=== PATIENT | female | born 1990 | race Caucasian/White ===

== ENCOUNTER → 2017-12-15 12:01 | Outpatient (CLI) | payer OTHER, SELFPAY | PROVIDERS: PCP Family Medicine | DX: Z23 Encounter for immunization (principal) | CPT/HCPCS: 90471; 90686 ==

== ENCOUNTER → 2018-04-10 09:10 | Outpatient (CLI) | payer OTHER, SELFPAY | PROVIDERS: PCP Family Medicine; Visit Provider Physician Assistant | DX: J02.9 Acute pharyngitis, unspecified (principal) | CPT/HCPCS: 87070 ==

== ENCOUNTER 2018-08-09 09:45 | Outpatient (RCR) | payer OTHER, SELFPAY ==
--- NOTE | 2017-11-11 15:52 | PT.OIE ---
Current Diagnoses Cervicalgia (11/11/17) Provider Visit Care Team Role Provider Type Phylicia Garcia DO Attending Provider Physician Primary Care Provider Specialty: Family Practice Address: [address] [place] [address], [id number] Email: [email or web address] Physical Therapy Initial Evaluation PT-OP-A Visit Information Start: 11/11/17 07:25 Freq: Status: Active Protocol: Document 11/11/17 08:19 [facility] (Rec: 11/11/17 15:52 [facility] [id number]) Out-Patient Physical Therapy Visit Information Visit Information Visit Type Initial Evaluation Visit Note 60 visits per year Visit Start Time 08:15 Visit Stop Time 09:00 Total Visit Minutes 45 Visit Number 1 Number of VAULT KEEPER Visits 0 PT-OP-B Current Condition Start: 11/11/17 07:25 Freq: Status: Active Protocol: Document 11/11/17 08:19 [facility] (Rec: 11/11/17 15:52 [facility] [id number]) Current Condition History of Current Condition Onset Date 11/06/17 Current Complaints neck & upper thoracic pain History of Current Condition Pt presents with neck pain after she woke up on Tuesday with pain from cranium to shoulder blade region, especially when she sat up or looked up or down. Pt had pain a few months ago at yoga when she was in forward fold for extended time, but that went away quickly, unlike this which is lingering. Pt reports when she woke up Tuesday her arms wither numb and she was face down. Reports no numbness since. Reports her elbow pops of of socket on her R side for the past few years. Reports she had pain after the long car ride when they moved here also, but it went away soon after. Prior Treatments and Tests none Treatment Goals Patient/Caregiver Goals Dec pain & improve posture PT-OP-C Subjective Start: 11/11/17 07:25 Freq: Status: Active Protocol: Document 11/11/17 08:19 [facility] (Rec: 11/11/17 15:52 [facility] [id number]) Patient Questionnaires Neck Disability Index NDI Score 8 Neck Disability Index Impairment 1 to 19% Impaired (Score 1-9) OP-PT Pain Assessment Location Bilateral Posterior Neck Pain Location Details cranium to shoulder blades B Intensity 3 Scale Used Numeric (1 - 10) Frequency Intermittent Other Pain Aggravating Factors sitting up from bed, looking up/down Other Pain Alleviating Factors get out of painful position PT-OP-F Manual Assessment Start: 11/11/17 07:25 Freq: Status: Active Protocol: Document 11/11/17 08:19 [facility] (Rec: 11/11/17 09:05 [facility] [id number]) Manual Assessments Soft Tissue Assessment Soft Tissue Mobility Assessment Tightness & tenderness: UT, scalenes, c spine paraspinals, SCM; fascial tension posteriorly & ant Joint Mobility Assessment Joint Mobility Assessment elevated first rib & stiffness in thoracic spine PT-OP-J Posture/Palpation/Skin Start: 11/11/17 07:25 Freq: Status: Active Protocol: Document 11/11/17 08:19 [facility] (Rec: 11/11/17 09:05 [facility] [id number]) Posture Evaluation [facility] Postural Classification System [facility] Postural Classifications Anterior/Posterior Vertebral Compression Test 1 Elbow Flexion Test 1 Comments Posture Comments significant fwd head & neck PT-OP-K Range of Motion Start: 11/11/17 07:25 Freq: Status: Active Protocol: Document 11/11/17 08:19 [facility] (Rec: 11/11/17 09:05 [facility] [id number]) Cervical Spine Range of Motion Cervical Spine Active Degrees Flexion 32 Extension 62 Rotation Left 58 Rotation Right 57 Lateral Flexion Left 45 Lateral Flexion Right 45 Comments stretch B rotation; flex & ext painful; tight with SB PT-OP-L Special Tests Start: 11/11/17 07:25 Freq: Status: Active Protocol: Document 11/11/17 08:19 [facility] (Rec: 11/11/17 09:05 [facility] [id number]) Special Tests Cervical Spine Special Tests Spurling's Test Test Results neg Vertebral Artery Test Results neg B Alar Ligament Test Results neg Neural Special Tests- Upper Body Upper Limb Tension Test Test Results passive abd test Comments ~50 deg B Radial Nerve Tension Test Results L>R Ulnar Nerve Tension Test Results positive L; neg R Median Nerve Tension Test Results positive B Comments ~45 deg R & 60 deg L PT-OP-M Strength Start: 11/11/17 07:25 Freq: Status: Active Protocol: Document 11/11/17 08:19 [facility] (Rec: 11/11/17 09:05 [facility] [id number]) Shoulder Strength Shoulder Manual Muscle Testing Right Flexion 5 Normal Extension 5 Normal Abduction (C5) 5 Normal External Rotation 4+ Good+ Internal Rotation 5 Normal Horizontal Abduction 5 Normal Horizontal Adduction 5 Normal Left Flexion 5 Normal Extension 5 Normal Abduction (C5) 5 Normal External Rotation 4+ Good+ Internal Rotation 5 Normal Horizontal Abduction 5 Normal Horizontal Adduction 4+ Good+ Elbow/Forearm Strength Elbow and Forearm Manual Muscle Testing Right Flexion (C6) 4 Good Extension (C7) 5 Normal Pronation 5 Normal Supination 5 Normal Left Flexion (C6) 5 Normal Extension (C7) 5 Normal Pronation 5 Normal Supination 5 Normal PT-OP-Q Treatments Start: 11/11/17 07:25 Freq: Status: Active Protocol: Document 11/11/17 08:19 [facility] (Rec: 11/11/17 09:05 [facility] [id number]) Therapeutic Exercises Sidelying Exercises 1 Sidelying Exercise Name roll & reach Side bilateral Sitting Exercises 2 Sitting Exercise Name chin tucks 1 Sitting Exercise Name UT, scalenes, LS, pec stretch stretches Side bilateral Standing Exercises 2 Standing Exercise Name wall posture w/90/90 ER Side bilateral 1 Standing Exercise Name corner pec stretch Side bilateral PT-OP-T Assessment and Plan Start: 11/11/17 07:25 Freq: Status: Active Protocol: Document 11/11/17 08:19 [facility] (Rec: 11/11/17 15:31 [facility] [id number]) Physical Therapy Assessment Rehab Potential Rehabilitation Potential Good Evaluation Complexity Number of Personal Factors/Comorbidities 1-2 Number of Body Systems Impaired 4 or More Clinical Presentation at Evaluation Evolving Impairments Impairments Functional Activities Pain Posture ROM Soft Tissue Mobility Strength Goals Three Impairment posture Short Term Goal (STG) Indep HEP STG Duration 12/11/17 Process Consultant Goal (LTG) Pt will present with good posture without cueing. LTG Duration 01/11/18 Two Impairment NDI Process Consultant Goal (LTG) 0 to show functional improvement to allow normal activities without pain LTG Duration 01/11/18 One Impairment pain Correction Goal (LTG) 0/10 with all activities LTG Duration 01/11/18 Assessment Summary Assessment Pt presents with post neck & upper thoracic pain likely d/t poor postural control. Pt would benefit from skilled PT to work on postural stability & strength in order to decrease pain. Physical Therapy Plan Frequency and Duration Frequency of Treatment 2x/Week Duration of Treatment 2 months Plan of Care Start Date 11/11/17 Plan of Care End Date 01/11/18 Therapeutic Interventions Therapeutic Interventions Home Exercise Program Joint Mobilizations Manual Therapy Self-Care/Home Management Soft Tissue Mobilization Taping Therapeutic Activities Therapeutic Exercises Modalities Cold Pack/Ice Massage Electric Stimulation Hot Packs Traction- Mechanical Ultrasound Next Visit Focus/Plan Next Note Type Treatment Note Next Visit Plan child's pose, cat camel, rows, HAbd, MFR to post cervical
--- NOTE | 2017-11-11 15:52 | PT.OPPOC ---
Current Diagnoses Cervicalgia (11/11/17) Provider Visit Care Team Role Provider Type Phylicia Garcia DO Attending Provider Physician Primary Care Provider Specialty: Family Practice Address: [address] [place] [address], [id number] Email: [email or web address] Plan Of Care PT-OP-T Assessment and Plan Start: 11/11/17 07:25 Freq: Status: Active Protocol: Document 11/11/17 08:19 [facility] (Rec: 11/11/17 15:31 [facility] [id number]) Physical Therapy Assessment Rehab Potential Rehabilitation Potential Good Evaluation Complexity Number of Personal Factors/Comorbidities 1-2 Number of Body Systems Impaired 4 or More Clinical Presentation at Evaluation Evolving Impairments Impairments Functional Activities Pain Posture ROM Soft Tissue Mobility Strength Goals Three Impairment posture Short Term Goal (STG) Indep HEP STG Duration 12/11/17 Track Repairer Helper Goal (LTG) Pt will present with good posture without cueing. LTG Duration 01/11/18 Two Impairment NDI Usp Goal (LTG) 0 to show functional improvement to allow normal activities without pain LTG Duration 01/11/18 One Impairment pain Usp Goal (LTG) 0/10 with all activities LTG Duration 01/11/18 Assessment Summary Assessment Pt presents with post neck & upper thoracic pain likely d/t poor postural control. Pt would benefit from skilled PT to work on postural stability & strength in order to decrease pain. Physical Therapy Plan Frequency and Duration Frequency of Treatment 2x/Week Duration of Treatment 2 months Plan of Care Start Date 11/11/17 Plan of Care End Date 01/11/18 Therapeutic Interventions Therapeutic Interventions Home Exercise Program Joint Mobilizations Manual Therapy Self-Care/Home Management Soft Tissue Mobilization Taping Therapeutic Activities Therapeutic Exercises Modalities Cold Pack/Ice Massage Electric Stimulation Hot Packs Traction- Mechanical Ultrasound Next Visit Focus/Plan Next Note Type Treatment Note Next Visit Plan child's pose, cat camel, rows, HAbd, MFR to post cervical Plan of Care Dates Plan of Care Start Date 11/11/17 Plan of Care End Date 01/11/18 Please Sign and Return: I have reviewed this Plan of Care and certify that the skilled therapy services above are required to meet the patient?s needs. Physician Signature Date Printed Name and Credentials Clinical Instructor Signature Printed Name and Credentials
--- NOTE | 2017-11-24 17:01 | PT.OTN ---
Current Diagnoses Cervicalgia (11/24/17) Physical Therapy Treatment Note PT-OP-A Visit Information Start: 11/11/17 07:25 Freq: Status: Active Protocol: Document 11/24/17 08:15 [facility] (Rec: 11/24/17 09:47 [facility] [id number]) Out-Patient Physical Therapy Visit Information Visit Information Visit Type Treatment Note Visit Note [facility] Visit Start Time 08:15 Visit Stop Time 09:15 Total Visit Minutes 45 Visit Number 2 Number of DITCH CLEANER Visits 0 PT-OP-B Current Condition Start: 11/11/17 07:25 Freq: Status: Active Protocol: Document 11/11/17 08:19 [facility] (Rec: 11/11/17 15:52 [facility] [id number]) Current Condition History of Current Condition Onset Date 11/06/17 Current Complaints neck & upper thoracic pain History of Current Condition Pt presents with neck pain after she woke up on Tuesday with pain from cranium to shoulder blade region, especially when she sat up or looked up or down. Pt had pain a few months ago at yoga when she was in forward fold for extended time, but that went away quickly, unlike this which is lingering. Pt reports when she woke up Tuesday her arms wither numb and she was face down. Reports no numbness since. Reports her elbow pops of of socket on her R side for the past few years. Reports she had pain after the long car ride when they moved here also, but it went away soon after. Prior Treatments and Tests none Treatment Goals Patient/Caregiver Goals Dec pain & improve posture PT-OP-C Subjective Start: 11/11/17 07:25 Freq: Status: Active Protocol: Document 11/24/17 16:52 [facility] (Rec: 11/24/17 17:01 [facility] [id number]) OP-PT Subjective Patient Comments Patient Comments Reports she is trying to pay more attention to her posture and do the stretching exercises PT-OP-F Manual Assessment Start: 11/11/17 07:25 Freq: Status: Active Protocol: Document 11/11/17 08:19 [facility] (Rec: 11/11/17 09:05 [facility] [id number]) Manual Assessments Soft Tissue Assessment Soft Tissue Mobility Assessment Tightness & tenderness: UT, scalenes, c spine paraspinals, SCM; fascial tension posteriorly & ant Joint Mobility Assessment Joint Mobility Assessment elevated first rib & stiffness in thoracic spine PT-OP-J Posture/Palpation/Skin Start: 11/11/17 07:25 Freq: Status: Active Protocol: Document 11/11/17 08:19 [facility] (Rec: 11/11/17 09:05 [facility] [id number]) Posture Evaluation [facility] Postural Classification System [facility] Postural Classifications Anterior/Posterior Vertebral Compression Test 1 Elbow Flexion Test 1 Comments Posture Comments significant fwd head & neck PT-OP-K Range of Motion Start: 11/11/17 07:25 Freq: Status: Active Protocol: Document 11/11/17 08:19 [facility] (Rec: 11/11/17 09:05 [facility] [id number]) Cervical Spine Range of Motion Cervical Spine Active Degrees Flexion 32 Extension 62 Rotation Left 58 Rotation Right 57 Lateral Flexion Left 45 Lateral Flexion Right 45 Comments stretch B rotation; flex & ext painful; tight with SB PT-OP-L Special Tests Start: 11/11/17 07:25 Freq: Status: Active Protocol: Document 11/11/17 08:19 [facility] (Rec: 11/11/17 09:05 [facility] [id number]) Special Tests Cervical Spine Special Tests Spurling's Test Test Results neg Vertebral Artery Test Results neg B Alar Ligament Test Results neg Neural Special Tests- Upper Body Upper Limb Tension Test Test Results passive abd test Comments ~50 deg B Radial Nerve Tension Test Results L>R Ulnar Nerve Tension Test Results positive L; neg R Median Nerve Tension Test Results positive B Comments ~45 deg R & 60 deg L PT-OP-M Strength Start: 11/11/17 07:25 Freq: Status: Active Protocol: Document 11/11/17 08:19 [facility] (Rec: 11/11/17 09:05 [facility] [id number]) Shoulder Strength Shoulder Manual Muscle Testing Right Flexion 5 Normal Extension 5 Normal Abduction (C5) 5 Normal External Rotation 4+ Good+ Internal Rotation 5 Normal Horizontal Abduction 5 Normal Horizontal Adduction 5 Normal Left Flexion 5 Normal Extension 5 Normal Abduction (C5) 5 Normal External Rotation 4+ Good+ Internal Rotation 5 Normal Horizontal Abduction 5 Normal Horizontal Adduction 4+ Good+ Elbow/Forearm Strength Elbow and Forearm Manual Muscle Testing Right Flexion (C6) 4 Good Extension (C7) 5 Normal Pronation 5 Normal Supination 5 Normal Left Flexion (C6) 5 Normal Extension (C7) 5 Normal Pronation 5 Normal Supination 5 Normal PT-OP-Q Treatments Start: 11/11/17 07:25 Freq: Status: Active Protocol: Document 11/24/17 16:52 [facility] (Rec: 11/24/17 17:01 [facility] [id number]) Therapeutic Exercises Supine Exercises 1 Supine Exercise Name pec nga and minor stretches, lat stretch Equipment Used 1/2 roll, then full foam roll Reps/Minutes 5 active through ROM, 1 passive for 30 sec Sidelying Exercises 1 Sidelying Exercise Name roll & reach Side bilateral Reps/Minutes 5x ea Comments verbal and manual cues and facilitation of motion Sitting Exercises 2 Sitting Exercise Name chin tucks Standing Exercises 3 Standing Exercise Name rows, shld ext Side bilateral Resistance L1 TB Reps/Minutes 10x Comments emphasis on postural alignment 2 Standing Exercise Name wall posture w/90/90 ER Side bilateral 1 Standing Exercise Name corner and doorway stretch Side bilateral Manual Therapy Treatment Soft Tissue Mobilization 1 Body Location cervical spine, UT, levator Mobilization Type Myofascial Release Strumming Self-Care/Home Management Treatment Education Patient Education Home Exercise Program Posture Other Education written handout PT-OP-R Modalities Start: 11/11/17 07:25 Freq: Status: Active Protocol: Document 11/24/17 16:52 [facility] (Rec: 11/24/17 17:01 [facility] [id number]) Hot Pack/Cold Pack Treatment Hot Pack Location c/s Patient Position Hooklying Treatment Duration (minutes) 15 Patient Tolerance Good PT-OP-T Assessment and Plan Start: 11/11/17 07:25 Freq: Status: Active Protocol: Document 11/24/17 16:52 [facility] (Rec: 11/24/17 17:01 [facility] [id number]) Physical Therapy Assessment Goals Three Impairment posture Short Term Goal (STG) Indep HEP STG Duration 12/11/17 Senior Care Goal (LTG) Pt will present with good posture without cueing. LTG Duration 01/11/18 Two Impairment NDI Learning Support Specialist Goal (LTG) 0 to show functional improvement to allow normal activities without pain LTG Duration 01/11/18 One Impairment pain Senior Care Goal (LTG) 0/10 with all activities LTG Duration 01/11/18 Assessment Summary Assessment Patient demonstrating improving posural awareness, needs verbal and manual cues for cervical correction. Benefits from use of wall posture ex for tactile and kinesthetic feedback, and use of foam roller for flexibility and alignment. Physical Therapy Plan Frequency and Duration Frequency of Treatment 2x/Week Duration of Treatment 2 months Plan of Care Start Date 11/11/17 Plan of Care End Date 01/11/18 Therapeutic Interventions Therapeutic Interventions Home Exercise Program Joint Mobilizations Manual Therapy Self-Care/Home Management Soft Tissue Mobilization Taping Therapeutic Activities Therapeutic Exercises Modalities Cold Pack/Ice Massage Electric Stimulation Hot Packs Traction- Mechanical Ultrasound Next Visit Focus/Plan Next Note Type Treatment Note Next Visit Plan child's pose, cat/camel, progression of postural exercises
--- NOTE | 2017-12-14 11:43 | PT.OTN ---
Current Diagnoses Cervicalgia (12/14/17) Physical Therapy Treatment Note PT-OP-A Visit Information Start: 11/11/17 07:25 Freq: Status: Active Protocol: Document 12/14/17 11:40 [facility] (Rec: 12/14/17 11:43 [facility] [id number]) Out-Patient Physical Therapy Visit Information Visit Information Visit Type Treatment Note Visit Start Time 10:38 Visit Stop Time 11:20 Total Visit Minutes 42 PT-OP-B Current Condition Start: 11/11/17 07:25 Freq: Status: Active Protocol: Document 11/11/17 08:19 [facility] (Rec: 11/11/17 15:52 [facility] [id number]) Current Condition History of Current Condition Onset Date 11/06/17 Current Complaints neck & upper thoracic pain History of Current Condition Pt presents with neck pain after she woke up on Tuesday with pain from cranium to shoulder blade region, especially when she sat up or looked up or down. Pt had pain a few months ago at yoga when she was in forward fold for extended time, but that went away quickly, unlike this which is lingering. Pt reports when she woke up Tuesday her arms wither numb and she was face down. Reports no numbness since. Reports her elbow pops of of socket on her R side for the past few years. Reports she had pain after the long car ride when they moved here also, but it went away soon after. Prior Treatments and Tests none Treatment Goals Patient/Caregiver Goals Dec pain & improve posture PT-OP-C Subjective Start: 11/11/17 07:25 Freq: Status: Active Protocol: Document 12/14/17 11:40 [facility] (Rec: 12/14/17 11:43 [facility] [id number]) OP-PT Subjective Patient Comments Patient Comments pt reports compliance with neck stretches PT-OP-F Manual Assessment Start: 11/11/17 07:25 Freq: Status: Active Protocol: Document 11/11/17 08:19 [facility] (Rec: 11/11/17 09:05 [facility] [id number]) Manual Assessments Soft Tissue Assessment Soft Tissue Mobility Assessment Tightness & tenderness: UT, scalenes, c spine paraspinals, SCM; fascial tension posteriorly & ant Joint Mobility Assessment Joint Mobility Assessment elevated first rib & stiffness in thoracic spine PT-OP-J Posture/Palpation/Skin Start: 11/11/17 07:25 Freq: Status: Active Protocol: Document 11/11/17 08:19 [facility] (Rec: 11/11/17 09:05 [facility] [id number]) Posture Evaluation Alyson Postural Classification System Alyson Postural Classifications Anterior/Posterior Vertebral Compression Test 1 Elbow Flexion Test 1 Comments Posture Comments significant fwd head & neck PT-OP-K Range of Motion Start: 11/11/17 07:25 Freq: Status: Active Protocol: Document 11/11/17 08:19 [facility] (Rec: 11/11/17 09:05 [facility] [id number]) Cervical Spine Range of Motion Cervical Spine Active Degrees Flexion 32 Extension 62 Rotation Left 58 Rotation Right 57 Lateral Flexion Left 45 Lateral Flexion Right 45 Comments stretch B rotation; flex & ext painful; tight with SB PT-OP-L Special Tests Start: 11/11/17 07:25 Freq: Status: Active Protocol: Document 11/11/17 08:19 [facility] (Rec: 11/11/17 09:05 [facility] [id number]) Special Tests Cervical Spine Special Tests Spurling's Test Test Results neg Vertebral Artery Test Results neg B Alar Ligament Test Results neg Neural Special Tests- Upper Body Upper Limb Tension Test Test Results passive abd test Comments ~50 deg B Radial Nerve Tension Test Results L>R Ulnar Nerve Tension Test Results positive L; neg R Median Nerve Tension Test Results positive B Comments ~45 deg R & 60 deg L PT-OP-M Strength Start: 11/11/17 07:25 Freq: Status: Active Protocol: Document 11/11/17 08:19 [facility] (Rec: 11/11/17 09:05 [facility] [id number]) Shoulder Strength Shoulder Manual Muscle Testing Right Flexion 5 Normal Extension 5 Normal Abduction (C5) 5 Normal External Rotation 4+ Good+ Internal Rotation 5 Normal Horizontal Abduction 5 Normal Horizontal Adduction 5 Normal Left Flexion 5 Normal Extension 5 Normal Abduction (C5) 5 Normal External Rotation 4+ Good+ Internal Rotation 5 Normal Horizontal Abduction 5 Normal Horizontal Adduction 4+ Good+ Elbow/Forearm Strength Elbow and Forearm Manual Muscle Testing Right Flexion (C6) 4 Good Extension (C7) 5 Normal Pronation 5 Normal Supination 5 Normal Left Flexion (C6) 5 Normal Extension (C7) 5 Normal Pronation 5 Normal Supination 5 Normal PT-OP-Q Treatments Start: 11/11/17 07:25 Freq: Status: Active Protocol: Document 12/14/17 11:40 [facility] (Rec: 12/14/17 11:43 [facility] [id number]) Therapeutic Exercises Supine Exercises 2 Supine Exercise Name axial elongation Comments w/support 1 Supine Exercise Name pec nga and minor stretches, lat stretch Equipment Used 1/2 roll, then full foam roll Reps/Minutes 5 active through ROM, 1 passive for 30 sec Standing Exercises 2 Standing Exercise Name wall posture w/90/90 ER Side bilateral Manual Therapy Treatment Soft Tissue Mobilization 2 Body Location over sternum Mobilization Type Myofascial Release Comments w/chin tuck 1 Body Location cervical spine, UT, levator Mobilization Type Myofascial Release Strumming Joint Mobilizations 2 Joint T3 Direction R transverse FM 1 Joint T1-2 Direction AP Comments w/cover position FM PT-OP-R Modalities Start: 11/11/17 07:25 Freq: Status: Active Protocol: Document 11/24/17 16:52 [facility] (Rec: 11/24/17 17:01 [facility] [id number]) Hot Pack/Cold Pack Treatment Hot Pack Location c/s Patient Position Hooklying Treatment Duration (minutes) 15 Patient Tolerance Good PT-OP-T Assessment and Plan Start: 11/11/17 07:25 Freq: Status: Active Protocol: Document 12/14/17 11:40 [facility] (Rec: 12/14/17 11:43 [facility] [id number]) Physical Therapy Assessment Goals Three Impairment posture Short Term Goal (STG) Indep HEP STG Duration 12/11/17 Retirement Goal (LTG) Pt will present with good posture without cueing. LTG Duration 01/11/18 Two Impairment NDI Retirement Goal (LTG) 0 to show functional improvement to allow normal activities without pain LTG Duration 01/11/18 One Impairment pain Compound Coating Machine Offbearer Goal (LTG) 0/10 with all activities LTG Duration 01/11/18 Assessment Summary Assessment Pt required ceuing of review of postural exercises. After joint mobs and STM mobs, pt had greater ease to get into more neutral position. Pt cont to have inability to do axial elongation in supine without support. Physical Therapy Plan Frequency and Duration Frequency of Treatment 2x/Week Duration of Treatment 2 months Plan of Care Start Date 11/11/17 Plan of Care End Date 01/11/18 Next Visit Focus/Plan Next Note Type Treatment Note Next Visit Plan child's pose, cat/camel, progression of postural exercises
--- NOTE | 2017-12-29 10:55 | PT.OTN ---
Current Diagnoses Cervicalgia (12/28/17) Physical Therapy Treatment Note PT-OP-A Visit Information Start: 11/11/17 07:25 Freq: Status: Active Protocol: Document 12/28/17 15:15 [facility] (Rec: 12/29/17 10:55 [facility] [id number]) Out-Patient Physical Therapy Visit Information Visit Information Visit Type Treatment Note Visit Start Time 15:15 Visit Stop Time 16:01 Total Visit Minutes 46 Visit Number 4 Number of HEADWAITRESS Visits 0 PT-OP-B Current Condition Start: 11/11/17 07:25 Freq: Status: Active Protocol: Document 11/11/17 08:19 [facility] (Rec: 11/11/17 15:52 [facility] [id number]) Current Condition History of Current Condition Onset Date 11/06/17 Current Complaints neck & upper thoracic pain History of Current Condition Pt presents with neck pain after she woke up on Tuesday with pain from cranium to shoulder blade region, especially when she sat up or looked up or down. Pt had pain a few months ago at yoga when she was in forward fold for extended time, but that went away quickly, unlike this which is lingering. Pt reports when she woke up Tuesday her arms wither numb and she was face down. Reports no numbness since. Reports her elbow pops of of socket on her R side for the past few years. Reports she had pain after the long car ride when they moved here also, but it went away soon after. Prior Treatments and Tests none Treatment Goals Patient/Caregiver Goals Dec pain & improve posture PT-OP-C Subjective Start: 11/11/17 07:25 Freq: Status: Active Protocol: Document 12/28/17 15:15 [facility] (Rec: 12/29/17 10:55 [facility] [id number]) OP-PT Subjective Patient Comments Patient Comments Trying to be better at exercises, uncertain about desk set-up, difficulty knowing if posture correct and is trying to use mirror some as instructed. PT-OP-F Manual Assessment Start: 11/11/17 07:25 Freq: Status: Active Protocol: Document 11/11/17 08:19 [facility] (Rec: 11/11/17 09:05 [facility] [id number]) Manual Assessments Soft Tissue Assessment Soft Tissue Mobility Assessment Tightness & tenderness: UT, scalenes, c spine paraspinals, SCM; fascial tension posteriorly & ant Joint Mobility Assessment Joint Mobility Assessment elevated first rib & stiffness in thoracic spine PT-OP-J Posture/Palpation/Skin Start: 11/11/17 07:25 Freq: Status: Active Protocol: Document 11/11/17 08:19 [facility] (Rec: 11/11/17 09:05 [facility] [id number]) Posture Evaluation [facility] Postural Classification System Alyson Postural Classifications Anterior/Posterior Vertebral Compression Test 1 Elbow Flexion Test 1 Comments Posture Comments significant fwd head & neck PT-OP-K Range of Motion Start: 11/11/17 07:25 Freq: Status: Active Protocol: Document 11/11/17 08:19 [facility] (Rec: 11/11/17 09:05 [facility] [id number]) Cervical Spine Range of Motion Cervical Spine Active Degrees Flexion 32 Extension 62 Rotation Left 58 Rotation Right 57 Lateral Flexion Left 45 Lateral Flexion Right 45 Comments stretch B rotation; flex & ext painful; tight with SB PT-OP-L Special Tests Start: 11/11/17 07:25 Freq: Status: Active Protocol: Document 11/11/17 08:19 [facility] (Rec: 11/11/17 09:05 [facility] [id number]) Special Tests Cervical Spine Special Tests Spurling's Test Test Results neg Vertebral Artery Test Results neg B Alar Ligament Test Results neg Neural Special Tests- Upper Body Upper Limb Tension Test Test Results passive abd test Comments ~50 deg B Radial Nerve Tension Test Results L>R Ulnar Nerve Tension Test Results positive L; neg R Median Nerve Tension Test Results positive B Comments ~45 deg R & 60 deg L PT-OP-M Strength Start: 11/11/17 07:25 Freq: Status: Active Protocol: Document 11/11/17 08:19 [facility] (Rec: 11/11/17 09:05 [facility] [id number]) Shoulder Strength Shoulder Manual Muscle Testing Right Flexion 5 Normal Extension 5 Normal Abduction (C5) 5 Normal External Rotation 4+ Good+ Internal Rotation 5 Normal Horizontal Abduction 5 Normal Horizontal Adduction 5 Normal Left Flexion 5 Normal Extension 5 Normal Abduction (C5) 5 Normal External Rotation 4+ Good+ Internal Rotation 5 Normal Horizontal Abduction 5 Normal Horizontal Adduction 4+ Good+ Elbow/Forearm Strength Elbow and Forearm Manual Muscle Testing Right Flexion (C6) 4 Good Extension (C7) 5 Normal Pronation 5 Normal Supination 5 Normal Left Flexion (C6) 5 Normal Extension (C7) 5 Normal Pronation 5 Normal Supination 5 Normal PT-OP-Q Treatments Start: 11/11/17 07:25 Freq: Status: Active Protocol: Document 12/28/17 15:15 [facility] (Rec: 12/29/17 10:55 [facility] [id number]) Therapeutic Exercises Supine Exercises 2 Supine Exercise Name axial elongation Comments w/support 1 Supine Exercise Name pec nga and minor stretches, lat stretch Equipment Used 1/2 roll, then full foam roll Reps/Minutes 5 active through ROM, 1 passive for 30 sec Sidelying Exercises 1 Sidelying Exercise Name roll & reach Side bilateral Reps/Minutes 5x ea Comments emphasis on segmental motion Sitting Exercises wall posture Equipment Used straight back chair Standing Exercises 3 Standing Exercise Name rows, shld ext Side bilateral Resistance L1 TB Reps/Minutes 10x Comments emphasis on postural alignment 2 Standing Exercise Name wall posture w/90/90 ER Side bilateral Manual Therapy Treatment Soft Tissue Mobilization 1 Body Location cervical spine, UT, levator Mobilization Type Myofascial Release Strumming Self-Care/Home Management Treatment Education Patient Education Posture Other Education ergonomic assessment of work station with recommendations made for moving monitor centrally, raising monitor, moving file cabinet; consulted with aide who made those changes for patient. Also discussed support in various chairs for improved alignment PT-OP-R Modalities Start: 11/11/17 07:25 Freq: Status: Active Protocol: Document 11/24/17 16:52 [facility] (Rec: 11/24/17 17:01 [facility] [id number]) Hot Pack/Cold Pack Treatment Hot Pack Location c/s Patient Position Hooklying Treatment Duration (minutes) 15 Patient Tolerance Good PT-OP-T Assessment and Plan Start: 11/11/17 07:25 Freq: Status: Active Protocol: Document 12/28/17 15:15 [facility] (Rec: 12/29/17 10:55 [facility] [id number]) Physical Therapy Assessment Goals Three Impairment posture Short Term Goal (STG) Indep HEP STG Duration 12/11/17 [facility] Goal (LTG) Pt will present with good posture without cueing. 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 Physical Therapy Plan Frequency and Duration Frequency of Treatment 2x/Week Duration of Treatment 2 months Plan of Care Start Date 11/11/17 Plan of Care End Date 01/11/18 Therapeutic Interventions Therapeutic Interventions Home Exercise Program Joint Mobilizations Manual Therapy Self-Care/Home Management Soft Tissue Mobilization Taping Therapeutic Activities Therapeutic Exercises Modalities Cold Pack/Ice Massage Electric Stimulation Hot Packs Traction- Mechanical Ultrasound Next Visit Focus/Plan Next Note Type Treatment Note Next Visit Plan assess response to work station changes, progress with manual techniques, postural re-education, ROM and strengthening/stabilization ex as tolerated
--- NOTE | 2018-01-27 16:47 | PT.OTRE ---
Current Diagnoses Cervicalgia (01/27/18) Provider Visit Care Team Role Provider Type Phylicia Garcia DO Attending Provider Physician Primary Care Provider Specialty: Family Practice Address: [address] [place] [address], [id number] Email: [email or web address] Physical Therapy Re-Evaluation PT-OP-A Visit Information Start: 11/11/17 07:25 Freq: Status: Active Protocol: Document 01/27/18 08:15 [facility] (Rec: 01/27/18 09:33 [facility] [id number]) Out-Patient Physical Therapy Visit Information Visit Information Visit Type Re-Evaluation Visit Start Time 08:15 Visit Stop Time 09:00 Total Visit Minutes 45 Visit Number 5 Number of DIRECTOR TRADING Visits 0 PT-OP-B Current Condition Start: 11/11/17 07:25 Freq: Status: Active Protocol: Document 11/11/17 08:19 [facility] (Rec: 11/11/17 15:52 [facility] [id number]) Current Condition History of Current Condition Onset Date 11/06/17 Current Complaints neck & upper thoracic pain History of Current Condition Pt presents with neck pain after she woke up on Tuesday with pain from cranium to shoulder blade region, especially when she sat up or looked up or down. Pt had pain a few months ago at yoga when she was in forward fold for extended time, but that went away quickly, unlike this which is lingering. Pt reports when she woke up Tuesday her arms wither numb and she was face down. Reports no numbness since. Reports her elbow pops of of socket on her R side for the past few years. Reports she had pain after the long car ride when they moved here also, but it went away soon after. Prior Treatments and Tests none Treatment Goals Patient/Caregiver Goals Dec pain & improve posture PT-OP-C Subjective Start: 11/11/17 07:25 Freq: Status: Active Protocol: Document 01/27/18 08:15 [facility] (Rec: 01/27/18 09:33 [facility] [id number]) OP-PT Subjective Patient Comments Patient Comments No pain today, has modified work station as recommended, using towel roll behind thoracic spine during extended charting. Requesting guidance regarding exercise form at gym for neck protection. Reports during staff meeting she found herself stretching front of shoulders using bar on wall. Patient Reported Progress Improving OP-PT Pain Assessment Location Bilateral Posterior Neck Intensity 2 Comments Pain Comments less frequent PT-OP-F Manual Assessment Start: 11/11/17 07:25 Freq: Status: Active Protocol: Document 11/11/17 08:19 [facility] (Rec: 11/11/17 09:05 [facility] [id number]) Manual Assessments Soft Tissue Assessment Soft Tissue Mobility Assessment Tightness & tenderness: UT, scalenes, c spine paraspinals, SCM; fascial tension posteriorly & ant Joint Mobility Assessment Joint Mobility Assessment elevated first rib & stiffness in thoracic spine PT-OP-J Posture/Palpation/Skin Start: 11/11/17 07:25 Freq: Status: Active Protocol: Document 11/11/17 08:19 [facility] (Rec: 11/11/17 09:05 [facility] [id number]) Posture Evaluation [facility] Postural Classification System Alyson Postural Classifications Anterior/Posterior Vertebral Compression Test 1 Elbow Flexion Test 1 Comments Posture Comments significant fwd head & neck PT-OP-K Range of Motion Start: 11/11/17 07:25 Freq: Status: Active Protocol: Document 11/11/17 08:19 [facility] (Rec: 11/11/17 09:05 [facility] [id number]) Cervical Spine Range of Motion Cervical Spine Active Degrees Flexion 32 Extension 62 Rotation Left 58 Rotation Right 57 Lateral Flexion Left 45 Lateral Flexion Right 45 Comments stretch B rotation; flex & ext painful; tight with SB PT-OP-L Special Tests Start: 11/11/17 07:25 Freq: Status: Active Protocol: Document 11/11/17 08:19 [facility] (Rec: 11/11/17 09:05 [facility] [id number]) Special Tests Cervical Spine Special Tests Spurling's Test Test Results neg Vertebral Artery Test Results neg B Alar Ligament Test Results neg Neural Special Tests- Upper Body Upper Limb Tension Test Test Results passive abd test Comments ~50 deg B Radial Nerve Tension Test Results L>R Ulnar Nerve Tension Test Results positive L; neg R Median Nerve Tension Test Results positive B Comments ~45 deg R & 60 deg L PT-OP-M Strength Start: 11/11/17 07:25 Freq: Status: Active Protocol: Document 11/11/17 08:19 [facility] (Rec: 11/11/17 09:05 [facility] [id number]) Shoulder Strength Shoulder Manual Muscle Testing Right Flexion 5 Normal Extension 5 Normal Abduction (C5) 5 Normal External Rotation 4+ Good+ Internal Rotation 5 Normal Horizontal Abduction 5 Normal Horizontal Adduction 5 Normal Left Flexion 5 Normal Extension 5 Normal Abduction (C5) 5 Normal External Rotation 4+ Good+ Internal Rotation 5 Normal Horizontal Abduction 5 Normal Horizontal Adduction 4+ Good+ Elbow/Forearm Strength Elbow and Forearm Manual Muscle Testing Right Flexion (C6) 4 Good Extension (C7) 5 Normal Pronation 5 Normal Supination 5 Normal Left Flexion (C6) 5 Normal Extension (C7) 5 Normal Pronation 5 Normal Supination 5 Normal PT-OP-Q Treatments Start: 11/11/17 07:25 Freq: Status: Active Protocol: Document 01/27/18 08:15 [facility] (Rec: 01/27/18 09:33 [facility] [id number]) Cardio Equipment Upper Body Ergometer (UBE) Duration (Minutes) 5 RPM 90 Other forward/bck, postural emphasis Therapeutic Exercises Supine Exercises 2 Supine Exercise Name axial elongation Comments w/support 1 Supine Exercise Name pec nga and minor stretches, lat stretch Equipment Used supine on therapy ball Reps/Minutes 5 active through ROM, 1 passive for 30 sec Prone Exercises planks Comments verbal and manual cues for alignment T's and Y's Equipment Used therapy ball Reps/Minutes 10x Sidelying Exercises side plank Comments verbal and manual cues for alignment 1 Sidelying Exercise Name roll & reach Side bilateral Reps/Minutes 5x ea Comments emphasis on segmental motion Sitting Exercises rows Resistance 30# Reps/Minutes 10x lat pull Resistance 40# Reps/Minutes 10x 2 Sitting Exercise Name chin tucks Standing Exercises bicep curls Equipment Used 7# wayne Reps/Minutes 10x 3 Standing Exercise Name rows, shld ext Side bilateral Resistance L1 TB Reps/Minutes 10x Comments emphasis on postural alignment 2 Standing Exercise Name wall posture w/90/90 ER Side bilateral Manual Therapy Treatment Soft Tissue Mobilization 1 Body Location cervical spine, UT, levator Mobilization Type Myofascial Release Strumming Trigger Point Release Body Position Hooklying Self-Care/Home Management Treatment Education Patient Education Home Exercise Program Posture Other Education Assessment of work station changes PT-OP-R Modalities Start: 11/11/17 07:25 Freq: Status: Active Protocol: Document 11/24/17 16:52 [facility] (Rec: 11/24/17 17:01 [facility] [id number]) Hot Pack/Cold Pack Treatment Hot Pack Location c/s Patient Position Hooklying Treatment Duration (minutes) 15 Patient Tolerance Good PT-OP-T Assessment and Plan Start: 11/11/17 07:25 Freq: Status: Active Protocol: Document 01/27/18 08:15 [facility] (Rec: 01/27/18 09:33 [facility] [id number]) Physical Therapy Assessment Goals Three Impairment posture Short Term Goal (STG) Indep HEP (good progress; ongoing progression) STG Duration 02/17/18 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 Maintenance Supervisor Goal (LTG) Pt will present with good posture without cueing (good progress; decreased need for cues) LTG Duration 03/10/18 Two Impairment NDI [facility] Goal (LTG) 0 to show functional improvement to allow normal activities without pain (good progress, now 8%) LTG Duration 03/10/18 One Impairment pain Apartment Maintenance Supervisor Goal (LTG) 0/10 with all activities (good progress; decreased to 2/10) LTG Duration 03/10/18 Progress Towards Goals Progress Towards Goals Progressing Toward Goals Progress Comments Patient continues to make steady progress with decreasing pain, improving posture, and tolerating progression of HEP. Assessment Summary Assessment Would benefit from further PT to help her to fully achieve her therapy goals and return to pain-free activity. Physical Therapy Plan Frequency and Duration Frequency of Treatment 4 visits Duration of Treatment 6 wks Plan of Care Start Date 01/27/18 Plan of Care End Date 03/10/18 Therapeutic Interventions Therapeutic Interventions Home Exercise Program Joint Mobilizations Manual Therapy Self-Care/Home Management Soft Tissue Mobilization Taping Therapeutic Activities Therapeutic Exercises Modalities Cold Pack/Ice Massage Electric Stimulation Hot Packs Traction- Mechanical Ultrasound Next Visit Focus/Plan Next Note Type Treatment Note Next Visit Plan Continue PT for postural correction, flexibility and strengthening, progression of ther ex. Sequential wall posture exercise.
--- NOTE | 2018-01-27 16:50 | PT.OPPOC ---
Current Diagnoses Cervicalgia (01/27/18) Provider Visit Care Team Role Provider Type Phylicia Garcia DO Attending Provider Physician Primary Care Provider Specialty: Family Practice Address: [address] [place] [address], [id number] Email: [email or web address] Plan Of Care PT-OP-T Assessment and Plan Start: 11/11/17 07:25 Freq: Status: Active Protocol: Document 01/27/18 08:15 [facility] (Rec: 01/27/18 09:33 [facility] [id number]) Physical Therapy Assessment Goals Three Impairment posture Short Term Goal (STG) Indep HEP (good progress; ongoing progression) STG Duration 02/17/18 Warp Hauler Goal (LTG) Pt will present with good posture without cueing (good progress; decreased need for cues) LTG Duration 03/10/18 Two Impairment NDI Detention Goal (LTG) 0 to show functional improvement to allow normal activities without pain (good progress, now 8%) LTG Duration 03/10/18 One Impairment pain Warp Hauler Goal (LTG) 0/10 with all activities (good progress; decreased to 2/10) LTG Duration 03/10/18 Progress Towards Goals Progress Towards Goals Progressing Toward Goals Progress Comments Patient continues to make steady progress with decreasing pain, improving posture, and tolerating progression of HEP. Assessment Summary Assessment Would benefit from further PT to help her to fully achieve her therapy goals and return to pain-free activity. Physical Therapy Plan Frequency and Duration Frequency of Treatment 4 visits Duration of Treatment 6 wks Plan of Care Start Date 01/27/18 Plan of Care End Date 03/10/18 Therapeutic Interventions Therapeutic Interventions Home Exercise Program Joint Mobilizations Manual Therapy Self-Care/Home Management Soft Tissue Mobilization Taping Therapeutic Activities Therapeutic Exercises Modalities Cold Pack/Ice Massage Electric Stimulation Hot Packs Traction- Mechanical Ultrasound Next Visit Focus/Plan Next Note Type Treatment Note Next Visit Plan Continue PT for postural correction, flexibility and strengthening, progression of ther ex. Sequential wall posture exercise. Plan of Care Dates Plan of Care Start Date 01/27/18 Plan of Care End Date 03/10/18 Please Sign and Return: I have reviewed this Plan of Care and certify that the skilled therapy services above are required to meet the patient?s needs. Physician Signature Date Printed Name and Credentials Clinical Instructor Signature Printed Name and Credentials
--- NOTE | 2018-02-17 09:44 | PT.OTN ---
Current Diagnoses Cervicalgia (02/17/18) Physical Therapy Treatment Note PT-OP-A Visit Information Start: 11/11/17 07:25 Freq: Status: Active Protocol: Document 02/17/18 09:38 [facility] (Rec: 02/17/18 09:44 [facility] [id number]) Out-Patient Physical Therapy Visit Information Visit Information Visit Type Treatment Note Visit Start Time 07:30 Visit Stop Time 08:15 Total Visit Minutes 45 Visit Number 6 Number of CRUCIBLE PACKER Visits 0 PT-OP-B Current Condition Start: 11/11/17 07:25 Freq: Status: Active Protocol: Document 11/11/17 08:19 [facility] (Rec: 11/11/17 15:52 [facility] [id number]) Current Condition History of Current Condition Onset Date 11/06/17 Current Complaints neck & upper thoracic pain History of Current Condition Pt presents with neck pain after she woke up on Tuesday with pain from cranium to shoulder blade region, especially when she sat up or looked up or down. Pt had pain a few months ago at yoga when she was in forward fold for extended time, but that went away quickly, unlike this which is lingering. Pt reports when she woke up Tuesday her arms wither numb and she was face down. Reports no numbness since. Reports her elbow pops of of socket on her R side for the past few years. Reports she had pain after the long car ride when they moved here also, but it went away soon after. Prior Treatments and Tests none Treatment Goals Patient/Caregiver Goals Dec pain & improve posture PT-OP-C Subjective Start: 11/11/17 07:25 Freq: Status: Active Protocol: Document 02/17/18 09:38 [facility] (Rec: 02/17/18 09:44 [facility] [id number]) OP-PT Subjective Patient Comments Patient Comments Reports yoga instructed her with fwd fold exercise and that has helped. PT-OP-F Manual Assessment Start: 11/11/17 07:25 Freq: Status: Active Protocol: Document 11/11/17 08:19 [facility] (Rec: 11/11/17 09:05 [facility] [id number]) Manual Assessments Soft Tissue Assessment Soft Tissue Mobility Assessment Tightness & tenderness: UT, scalenes, c spine paraspinals, SCM; fascial tension posteriorly & ant Joint Mobility Assessment Joint Mobility Assessment elevated first rib & stiffness in thoracic spine PT-OP-J Posture/Palpation/Skin Start: 11/11/17 07:25 Freq: Status: Active Protocol: Document 11/11/17 08:19 [facility] (Rec: 11/11/17 09:05 [facility] [id number]) Posture Evaluation [facility] Postural Classification System [facility] Postural Classifications Anterior/Posterior Vertebral Compression Test 1 Elbow Flexion Test 1 Comments Posture Comments significant fwd head & neck PT-OP-K Range of Motion Start: 11/11/17 07:25 Freq: Status: Active Protocol: Document 11/11/17 08:19 [facility] (Rec: 11/11/17 09:05 [facility] [id number]) Cervical Spine Range of Motion Cervical Spine Active Degrees Flexion 32 Extension 62 Rotation Left 58 Rotation Right 57 Lateral Flexion Left 45 Lateral Flexion Right 45 Comments stretch B rotation; flex & ext painful; tight with SB PT-OP-L Special Tests Start: 11/11/17 07:25 Freq: Status: Active Protocol: Document 11/11/17 08:19 [facility] (Rec: 11/11/17 09:05 [facility] [id number]) Special Tests Cervical Spine Special Tests Spurling's Test Test Results neg Vertebral Artery Test Results neg B Alar Ligament Test Results neg Neural Special Tests- Upper Body Upper Limb Tension Test Test Results passive abd test Comments ~50 deg B Radial Nerve Tension Test Results L>R Ulnar Nerve Tension Test Results positive L; neg R Median Nerve Tension Test Results positive B Comments ~45 deg R & 60 deg L PT-OP-M Strength Start: 11/11/17 07:25 Freq: Status: Active Protocol: Document 11/11/17 08:19 [facility] (Rec: 11/11/17 09:05 [facility] [id number]) Shoulder Strength Shoulder Manual Muscle Testing Right Flexion 5 Normal Extension 5 Normal Abduction (C5) 5 Normal External Rotation 4+ Good+ Internal Rotation 5 Normal Horizontal Abduction 5 Normal Horizontal Adduction 5 Normal Left Flexion 5 Normal Extension 5 Normal Abduction (C5) 5 Normal External Rotation 4+ Good+ Internal Rotation 5 Normal Horizontal Abduction 5 Normal Horizontal Adduction 4+ Good+ Elbow/Forearm Strength Elbow and Forearm Manual Muscle Testing Right Flexion (C6) 4 Good Extension (C7) 5 Normal Pronation 5 Normal Supination 5 Normal Left Flexion (C6) 5 Normal Extension (C7) 5 Normal Pronation 5 Normal Supination 5 Normal PT-OP-Q Treatments Start: 11/11/17 07:25 Freq: Status: Active Protocol: Document 02/17/18 09:38 [facility] (Rec: 02/17/18 09:44 [facility] [id number]) Therapeutic Exercises Standing Exercises 3 Standing Exercise Name rows, shld ext Side bilateral Resistance L1 TB Reps/Minutes 10x Comments emphasis on postural alignment 2 Standing Exercise Name wall posture w/90/90 ER Side bilateral Therapeutic Activity Therapeutic Activity standing posture Name edu of scapular & cervical position desk Name edu of desk set up and position Comments how to set up proper height and distance of screen Manual Therapy Treatment Soft Tissue Mobilization 1 Body Location cervical spine, UT, levator Mobilization Type Myofascial Release Strumming Trigger Point Release Body Position Hooklying Joint Mobilizations AC Joint AC Direction FM for PA clavicle 2 Joint 1st rib Direction caudal R FM 1 Joint GH Direction inf glide Grade III Comments FM PT-OP-R Modalities Start: 11/11/17 07:25 Freq: Status: Active Protocol: Document 11/24/17 16:[address] [facility] (Rec: 11/24/17 17:[address] [facility] [id number]) Hot Pack/Cold Pack Treatment Hot Pack Location c/s Patient Position Hooklying Treatment Duration (minutes) 15 Patient Tolerance Good PT-OP-T Assessment and Plan Start: 11/11/17 07:25 Freq: Status: Active Protocol: Document 02/17/18 09:38 [facility] (Rec: 02/17/18 09:44 [facility] [id number]) Physical Therapy Assessment Goals Three Impairment posture Short Term Goal (STG) Indep HEP (good progress; ongoing progression) STG Duration 02/17/18 Half-Way Goal (LTG) Pt will present with good posture without cueing (good progress; decreased need for cues) LTG Duration 03/10/18 Two Impairment NDI Half-Way Goal (LTG) 0 to show functional improvement to allow normal activities without pain (good progress, now 8%) LTG Duration 03/10/18 One Impairment pain Half-Way Goal (LTG) 0/10 with all activities (good progress; decreased to 2/10) LTG Duration 03/10/18 Assessment Summary Assessment Improved abd with shoulder mobs. Pt was able to maintain improved scapular position by end of session, which in turn benefited neck position. Physical Therapy Plan Frequency and Duration Frequency of Treatment 4 visits Duration of Treatment 6 wks Plan of Care Start Date 01/27/18 Plan of Care End Date 03/10/18 Next Visit Focus/Plan Next Note Type Treatment Note Next Visit Plan Cont to work on scapular & cervical positioning; GH post glide
--- NOTE | 2018-02-22 14:55 | PT.OTN ---
Current Diagnoses Cervicalgia (02/22/18) Physical Therapy Treatment Note PT-OP-A Visit Information Start: 11/11/17 07:25 Freq: Status: Active Protocol: Document 02/22/18 11:14 [facility] (Rec: 02/22/18 14:30 [facility] [id number]) Out-Patient Physical Therapy Visit Information Visit Information Visit Type Treatment Note Visit Start Time 11:15 Visit Stop Time 12:00 Total Visit Minutes 45 Visit Number 7 Number of SVP D[employer] AD SALES Visits 0 PT-OP-B Current Condition Start: 11/11/17 07:25 Freq: Status: Active Protocol: Document 11/11/17 08:19 [facility] (Rec: 11/11/17 15:52 [facility] [id number]) Current Condition History of Current Condition Onset Date 11/06/17 Current Complaints neck & upper thoracic pain History of Current Condition Pt presents with neck pain after she woke up on Tuesday with pain from cranium to shoulder blade region, especially when she sat up or looked up or down. Pt had pain a few months ago at yoga when she was in forward fold for extended time, but that went away quickly, unlike this which is lingering. Pt reports when she woke up Tuesday her arms wither numb and she was face down. Reports no numbness since. Reports her elbow pops of of socket on her R side for the past few years. Reports she had pain after the long car ride when they moved here also, but it went away soon after. Prior Treatments and Tests none Treatment Goals Patient/Caregiver Goals Dec pain & improve posture PT-OP-C Subjective Start: 11/11/17 07:25 Freq: Status: Active Protocol: Document 02/22/18 11:14 [facility] (Rec: 02/22/18 13:02 [facility] [id number]) OP-PT Subjective Patient Comments Patient Comments Reports she turned her head to talk to another therapist today and noted neck pain that lasted about 5 sec. PT-OP-F Manual Assessment Start: 11/11/17 07:25 Freq: Status: Active Protocol: Document 11/11/17 08:19 [facility] (Rec: 11/11/17 09:05 [facility] [id number]) Manual Assessments Soft Tissue Assessment Soft Tissue Mobility Assessment Tightness & tenderness: UT, scalenes, c spine paraspinals, SCM; fascial tension posteriorly & ant Joint Mobility Assessment Joint Mobility Assessment elevated first rib & stiffness in thoracic spine PT-OP-J Posture/Palpation/Skin Start: 11/11/17 07:25 Freq: Status: Active Protocol: Document 11/11/17 08:19 [facility] (Rec: 11/11/17 09:05 [facility] [id number]) Posture Evaluation [facility] Postural Classification System [facility] Postural Classifications Anterior/Posterior Vertebral Compression Test 1 Elbow Flexion Test 1 Comments Posture Comments significant fwd head & neck PT-OP-K Range of Motion Start: 11/11/17 07:25 Freq: Status: Active Protocol: Document 11/11/17 08:19 [facility] (Rec: 11/11/17 09:05 [facility] [id number]) Cervical Spine Range of Motion Cervical Spine Active Degrees Flexion 32 Extension 62 Rotation Left 58 Rotation Right 57 Lateral Flexion Left 45 Lateral Flexion Right 45 Comments stretch B rotation; flex & ext painful; tight with SB PT-OP-L Special Tests Start: 11/11/17 07:25 Freq: Status: Active Protocol: Document 11/11/17 08:19 [facility] (Rec: 11/11/17 09:05 [facility] [id number]) Special Tests Cervical Spine Special Tests Spurling's Test Test Results neg Vertebral Artery Test Results neg B Alar Ligament Test Results neg Neural Special Tests- Upper Body Upper Limb Tension Test Test Results passive abd test Comments ~50 deg B Radial Nerve Tension Test Results L>R Ulnar Nerve Tension Test Results positive L; neg R Median Nerve Tension Test Results positive B Comments ~45 deg R & 60 deg L PT-OP-M Strength Start: 11/11/17 07:25 Freq: Status: Active Protocol: Document 11/11/17 08:19 [facility] (Rec: 11/11/17 09:05 [facility] [id number]) Shoulder Strength Shoulder Manual Muscle Testing Right Flexion 5 Normal Extension 5 Normal Abduction (C5) 5 Normal External Rotation 4+ Good+ Internal Rotation 5 Normal Horizontal Abduction 5 Normal Horizontal Adduction 5 Normal Left Flexion 5 Normal Extension 5 Normal Abduction (C5) 5 Normal External Rotation 4+ Good+ Internal Rotation 5 Normal Horizontal Abduction 5 Normal Horizontal Adduction 4+ Good+ Elbow/Forearm Strength Elbow and Forearm Manual Muscle Testing Right Flexion (C6) 4 Good Extension (C7) 5 Normal Pronation 5 Normal Supination 5 Normal Left Flexion (C6) 5 Normal Extension (C7) 5 Normal Pronation 5 Normal Supination 5 Normal PT-OP-Q Treatments Start: 11/11/17 07:25 Freq: Status: Active Protocol: Document 02/22/18 11:13 [facility] (Rec: 02/22/18 14:55 [facility] [id number]) Therapeutic Exercises Standing Exercises 2 Standing Exercise Name wall posture w/90/90 ER Side bilateral Manual Therapy Treatment Soft Tissue Mobilization 2 Body Location pterygoid Mobilization Type Sustained Pressure 1 Body Location cervical spine, UT, levator Mobilization Type Myofascial Release Strumming Trigger Point Release Body Position Hooklying Joint Mobilizations AC Joint AC Direction FM for PA clavicle 2 Joint GH Direction post glide FM,inf glide & translation FM 1 Joint T1-2 Direction AP Comments w/cover position FM PT-OP-R Modalities Start: 11/11/17 07:25 Freq: Status: Active Protocol: Document 11/24/17 16:52 [facility] (Rec: 11/24/17 17:01 [facility] [id number]) Hot Pack/Cold Pack Treatment Hot Pack Location c/s Patient Position Hooklying Treatment Duration (minutes) 15 Patient Tolerance Good PT-OP-T Assessment and Plan Start: 11/11/17 07:25 Freq: Status: Active Protocol: Document 02/22/18 11:14 [facility] (Rec: 02/22/18 13:02 [facility] [id number]) Physical Therapy Assessment Goals Three Impairment posture Short Term Goal (STG) Indep HEP (good progress; ongoing progression) STG Duration 02/17/18 Mcfp Goal (LTG) Pt will present with good posture without cueing (good progress; decreased need for cues) LTG Duration 03/10/18 Two Impairment NDI Glass Melt Operator Goal (LTG) 0 to show functional improvement to allow normal activities without pain (good progress, now 8%) LTG Duration 03/10/18 One Impairment pain Glass Melt Operator Goal (LTG) 0/10 with all activities (good progress; decreased to 2/10) LTG Duration 03/10/18 Assessment Summary Assessment Pt improves shoulder range with shoulder mobs and improved ability to do abd without pain. Pt cont to have some limitation with fwd head position. Physical Therapy Plan Frequency and Duration Frequency of Treatment 4 visits Duration of Treatment 6 wks Plan of Care Start Date 01/27/18 Plan of Care End Date 03/10/18 Next Visit Focus/Plan Next Note Type Treatment Note Next Visit Plan Cont to work on upper thoracic mobility for postural correction
--- NOTE | 2018-03-13 11:18 | PT.OTN ---
Current Diagnoses Cervicalgia (03/13/18) Physical Therapy Treatment Note PT-OP-A Visit Information Start: 11/11/17 07:25 Freq: Status: Active Protocol: Document 03/13/18 10:30 [facility] (Rec: 03/13/18 11:18 [facility] [id number]) Out-Patient Physical Therapy Visit Information Visit Information Visit Type Treatment Note Visit Start Time 10:30 Visit Stop Time 11:12 Total Visit Minutes 42 Visit Number 8 Number of MOPHEAD TRIMMER AND WRAPPER Visits 0 PT-OP-B Current Condition Start: 11/11/17 07:25 Freq: Status: Active Protocol: Document 11/11/17 08:19 [facility] (Rec: 11/11/17 15:52 [facility] [id number]) Current Condition History of Current Condition Onset Date 11/06/17 Current Complaints neck & upper thoracic pain History of Current Condition Pt presents with neck pain after she woke up on Tuesday with pain from cranium to shoulder blade region, especially when she sat up or looked up or down. Pt had pain a few months ago at yoga when she was in forward fold for extended time, but that went away quickly, unlike this which is lingering. Pt reports when she woke up Tuesday her arms wither numb and she was face down. Reports no numbness since. Reports her elbow pops of of socket on her R side for the past few years. Reports she had pain after the long car ride when they moved here also, but it went away soon after. Prior Treatments and Tests none Treatment Goals Patient/Caregiver Goals Dec pain & improve posture PT-OP-C Subjective Start: 11/11/17 07:25 Freq: Status: Active Protocol: Document 03/13/18 10:30 [facility] (Rec: 03/13/18 11:18 [facility] [id number]) OP-PT Subjective Patient Comments Patient Comments reports no c/o pain recently. PT-OP-F Manual Assessment Start: 11/11/17 07:25 Freq: Status: Active Protocol: Document 11/11/17 08:19 [facility] (Rec: 11/11/17 09:05 [facility] [id number]) Manual Assessments Soft Tissue Assessment Soft Tissue Mobility Assessment Tightness & tenderness: UT, scalenes, c spine paraspinals, SCM; fascial tension posteriorly & ant Joint Mobility Assessment Joint Mobility Assessment elevated first rib & stiffness in thoracic spine PT-OP-J Posture/Palpation/Skin Start: 11/11/17 07:25 Freq: Status: Active Protocol: Document 11/11/17 08:19 [facility] (Rec: 11/11/17 09:05 [facility] [id number]) Posture Evaluation [facility] Postural Classification System [facility] Postural Classifications Anterior/Posterior Vertebral Compression Test 1 Elbow Flexion Test 1 Comments Posture Comments significant fwd head & neck PT-OP-K Range of Motion Start: 11/11/17 07:25 Freq: Status: Active Protocol: Document 03/13/18 10:30 [facility] (Rec: 03/13/18 11:18 [facility] [id number]) Cervical Spine Range of Motion Cervical Spine Active Degrees Flexion 52 Extension 63 Rotation Left 80 Rotation Right 80 Lateral Flexion Left 47 Lateral Flexion Right 45 Comments pulling w/end range rotations PT-OP-L Special Tests Start: 11/11/17 07:25 Freq: Status: Active Protocol: Document 11/11/17 08:19 [facility] (Rec: 11/11/17 09:05 [facility] [id number]) Special Tests Cervical Spine Special Tests Spurling's Test Test Results neg Vertebral Artery Test Results neg B Alar Ligament Test Results neg Neural Special Tests- Upper Body Upper Limb Tension Test Test Results passive abd test Comments ~50 deg B Radial Nerve Tension Test Results L>R Ulnar Nerve Tension Test Results positive L; neg R Median Nerve Tension Test Results positive B Comments ~45 deg R & 60 deg L PT-OP-M Strength Start: 11/11/17 07:25 Freq: Status: Active Protocol: Document 03/13/18 10:30 [facility] (Rec: 03/13/18 11:18 [facility] [id number]) Shoulder Strength Shoulder Manual Muscle Testing Right Comments 5/5 Left Comments 5/5 PT-OP-Q Treatments Start: 11/11/17 07:25 Freq: Status: Active Protocol: Document 03/13/18 10:30 [facility] (Rec: 03/13/18 11:18 [facility] [id number]) Therapeutic Exercises Supine Exercises 2 Supine Exercise Name axial elongation Comments w/support 1 Supine Exercise Name foam roll & over tennis ball ext Manual Therapy Treatment Soft Tissue Mobilization SCM Body Location SCM Mobilization Type Rolling 1 Body Location cervical spine, UT, levator Mobilization Type Myofascial Release Strumming Trigger Point Release Body Position Hooklying Joint Mobilizations 1 Joint T1-4 Direction AP & UPA B Comments prone, supine & seated FM PT-OP-R Modalities Start: 11/11/17 07:25 Freq: Status: Active Protocol: Document 11/24/17 16:52 [facility] (Rec: 11/24/17 17:01 [facility] [id number]) Hot Pack/Cold Pack Treatment Hot Pack Location c/s Patient Position Hooklying Treatment Duration (minutes) 15 Patient Tolerance Good PT-OP-T Assessment and Plan Start: 11/11/17 07:25 Freq: Status: Active Protocol: Document 03/13/18 10:30 [facility] (Rec: 03/13/18 11:18 [facility] [id number]) Physical Therapy Assessment Goals Three Impairment posture Short Term Goal (STG) Indep HEP (good progress; ongoing progression) STG Duration 02/17/18-achieved progressing prn Irish Moss Gatherer Goal (LTG) Pt will present with good posture without cueing (good progress; decreased need for cues) LTG Duration 05/11/18 Two Impairment NDI Alf Goal (LTG) 0 to show functional improvement to allow normal activities without pain (good progress, now 8%) LTG Duration 05/11/18improving One Impairment pain [place] Moss Gatherer Goal (LTG) 0/10 with all activities (good progress; decreased to 2/10) LTG Duration 03/10/18 achieved Assessment Summary Assessment Pt is able to improve posture after mobilization & soft tissue work. She cont to have difficulty with axial elongation. Physical Therapy Plan Frequency and Duration Frequency of Treatment 6 visits Duration of Treatment 2 months Plan of Care Start Date 03/13/19 Plan of Care End Date 05/11/18 Therapeutic Interventions Therapeutic Interventions Home Exercise Program Joint Mobilizations Manual Therapy Self-Care/Home Management Soft Tissue Mobilization Taping Therapeutic Activities Therapeutic Exercises Modalities Cold Pack/Ice Massage Electric Stimulation Hot Packs Traction- Mechanical Ultrasound
--- NOTE | 2018-03-13 11:18 | PT.OPPOC ---
Current Diagnoses Cervicalgia (03/13/18) Provider Visit Care Team Role Provider Type Phylicia Garcia DO Attending Provider Physician Primary Care Provider Specialty: Family Practice Address: [address] [place] [address], [id number] Email: [email or web address] Plan Of Care PT-OP-T Assessment and Plan Start: 11/11/17 07:25 Freq: Status: Active Protocol: Document 03/13/18 10:30 [facility] (Rec: 03/13/18 11:18 [facility] [id number]) Physical Therapy Assessment Goals Three Impairment posture Short Term Goal (STG) Indep HEP (good progress; ongoing progression) STG Duration 02/17/18-achieved progressing prn Intermediate Goal (LTG) Pt will present with good posture without cueing (good progress; decreased need for cues) LTG Duration 05/11/18 Two Impairment NDI Consulting Services Project Manager Goal (LTG) 0 to show functional improvement to allow normal activities without pain (good progress, now 8%) LTG Duration 05/11/18improving One Impairment pain Intermediate Goal (LTG) 0/10 with all activities (good progress; decreased to 2/10) LTG Duration 03/10/18 achieved Assessment Summary Assessment Pt is able to improve posture after mobilization & soft tissue work. She cont to have difficulty with axial elongation. Physical Therapy Plan Frequency and Duration Frequency of Treatment 6 visits Duration of Treatment 2 months Plan of Care Start Date 03/13/19 Plan of Care End Date 05/11/18 Therapeutic Interventions Therapeutic Interventions Home Exercise Program Joint Mobilizations Manual Therapy Self-Care/Home Management Soft Tissue Mobilization Taping Therapeutic Activities Therapeutic Exercises Modalities Cold Pack/Ice Massage Electric Stimulation Hot Packs Traction- Mechanical Ultrasound Plan of Care Dates Plan of Care Start Date 03/13/19 Plan of Care End Date 05/11/18 Please Sign and Return: I have reviewed this Plan of Care and certify that the skilled therapy services above are required to meet the patient?s needs. Physician Signature Date Printed Name and Credentials Clinical Instructor Signature Printed Name and Credentials
--- NOTE | 2018-04-05 13:46 | PT.OTN ---
Current Diagnoses Cervicalgia (04/05/18) Physical Therapy Treatment Note PT-OP-A Visit Information Start: 11/11/17 07:25 Freq: Status: Active Protocol: Document 04/05/18 13:42 [facility] (Rec: 04/05/18 13:46 [facility] [id number]) Out-Patient Physical Therapy Visit Information Visit Information Visit Type Treatment Note Visit Start Time 13:00 Visit Stop Time 13:40 Total Visit Minutes 40 Visit Number 9 Number of NATIONAL SALES REPRESENTATIVE Visits 0 PT-OP-B Current Condition Start: 11/11/17 07:25 Freq: Status: Active Protocol: Document 11/11/17 08:19 [facility] (Rec: 11/11/17 15:52 [facility] [id number]) Current Condition History of Current Condition Onset Date 11/06/17 Current Complaints neck & upper thoracic pain History of Current Condition Pt presents with neck pain after she woke up on Tuesday with pain from cranium to shoulder blade region, especially when she sat up or looked up or down. Pt had pain a few months ago at yoga when she was in forward fold for extended time, but that went away quickly, unlike this which is lingering. Pt reports when she woke up Tuesday her arms wither numb and she was face down. Reports no numbness since. Reports her elbow pops of of socket on her R side for the past few years. Reports she had pain after the long car ride when they moved here also, but it went away soon after. Prior Treatments and Tests none Treatment Goals Patient/Caregiver Goals Dec pain & improve posture PT-OP-C Subjective Start: 11/11/17 07:25 Freq: Status: Active Protocol: Document 04/05/18 13:42 [facility] (Rec: 04/05/18 13:46 [facility] [id number]) OP-PT Subjective Patient Comments Patient Comments Pt reports she had been doing well until last night her dog woke her up by pawin gher face a lot, so she slept with her face covered and thinks that may have made her neck sore. Reports she is working on her posture. PT-OP-F Manual Assessment Start: 11/11/17 07:25 Freq: Status: Active Protocol: Document 11/11/17 08:19 [facility] (Rec: 11/11/17 09:05 [facility] [id number]) Manual Assessments Soft Tissue Assessment Soft Tissue Mobility Assessment Tightness & tenderness: UT, scalenes, c spine paraspinals, SCM; fascial tension posteriorly & ant Joint Mobility Assessment Joint Mobility Assessment elevated first rib & stiffness in thoracic spine PT-OP-J Posture/Palpation/Skin Start: 11/11/17 07:25 Freq: Status: Active Protocol: Document 11/11/17 08:19 [facility] (Rec: 11/11/17 09:05 [facility] [id number]) Posture Evaluation [facility] Postural Classification System [facility] Postural Classifications Anterior/Posterior Vertebral Compression Test 1 Elbow Flexion Test 1 Comments Posture Comments significant fwd head & neck PT-OP-K Range of Motion Start: 11/11/17 07:25 Freq: Status: Active Protocol: Document 03/13/18 10:30 [facility] (Rec: 03/13/18 11:18 [facility] [id number]) Cervical Spine Range of Motion Cervical Spine Active Degrees Flexion 52 Extension 63 Rotation Left 80 Rotation Right 80 Lateral Flexion Left 47 Lateral Flexion Right 45 Comments pulling w/end range rotations PT-OP-L Special Tests Start: 11/11/17 07:25 Freq: Status: Active Protocol: Document 11/11/17 08:19 [facility] (Rec: 11/11/17 09:05 [facility] [id number]) Special Tests Cervical Spine Special Tests Spurling's Test Test Results neg Vertebral Artery Test Results neg B Alar Ligament Test Results neg Neural Special Tests- Upper Body Upper Limb Tension Test Test Results passive abd test Comments ~50 deg B Radial Nerve Tension Test Results L>R Ulnar Nerve Tension Test Results positive L; neg R Median Nerve Tension Test Results positive B Comments ~45 deg R & 60 deg L PT-OP-M Strength Start: 11/11/17 07:25 Freq: Status: Active Protocol: Document 03/13/18 10:30 [facility] (Rec: 03/13/18 11:18 [facility] [id number]) Shoulder Strength Shoulder Manual Muscle Testing Right Comments 5/5 Left Comments 5/5 PT-OP-Q Treatments Start: 11/11/17 07:25 Freq: Status: Active Protocol: Document 04/05/18 13:42 [facility] (Rec: 04/05/18 13:46 [facility] [id number]) Therapeutic Activity Therapeutic Activity sitting posture Name minor adjustments for sitting posture Manual Therapy Treatment Soft Tissue Mobilization SCM Body Location SCM Mobilization Type Rolling 1 Body Location cervical paraspinals, UT, levator, scalenes Mobilization Type Myofascial Release Strumming Trigger Point Release Body Position Hooklying Joint Mobilizations 1 Joint T1-4 Direction AP FM Comments supine & seated FM PT-OP-R Modalities Start: 11/11/17 07:25 Freq: Status: Active Protocol: Document 11/24/17 16:52 [facility] (Rec: 11/24/17 17:01 [facility] [id number]) Hot Pack/Cold Pack Treatment Hot Pack Location c/s Patient Position Hooklying Treatment Duration (minutes) 15 Patient Tolerance Good PT-OP-T Assessment and Plan Start: 11/11/17 07:25 Freq: Status: Active Protocol: Document 04/05/18 13:42 [facility] (Rec: 04/05/18 13:46 [facility] [id number]) Physical Therapy Assessment Goals Three Impairment posture Short Term Goal (STG) Indep HEP (good progress; ongoing progression) STG Duration 02/17/18-achieved progressing prn Chcf Goal (LTG) Pt will present with good posture without cueing (good progress; decreased need for cues) LTG Duration 05/11/18 Two Impairment NDI Tape Calender Goal (LTG) 0 to show functional improvement to allow normal activities without pain (good progress, now 8%) LTG Duration 05/11/18improving One Impairment pain Chcf Goal (LTG) 0/10 with all activities (good progress; decreased to 2/10) LTG Duration 03/10/18 achieved Assessment Summary Assessment Pt is able to achieve good posture and hold for longer at this time. She does fatigue through rhomboid region and was encouraged to cont strengthening exercises for that region. Inc ease of movement with treatment. Physical Therapy Plan Frequency and Duration Frequency of Treatment 6 visits Duration of Treatment 2 months Plan of Care Start Date 03/13/19 Plan of Care End Date 05/11/18 Next Visit Focus/Plan Next Note Type Treatment Note Next Visit Plan upper cevical mobility
--- NOTE | 2018-04-20 11:47 | PT.OTN ---
Current Diagnoses Cervicalgia (04/20/18) Physical Therapy Treatment Note PT-OP-A Visit Information Start: 11/11/17 07:25 Freq: Status: Active Protocol: Document 04/20/18 11:40 [facility] (Rec: 04/20/18 11:47 [facility] [id number]) Out-Patient Physical Therapy Visit Information Visit Information Visit Type Treatment Note Visit Start Time 07:30 Visit Stop Time 08:15 Total Visit Minutes 45 Visit Number 10 Number of HOUSEKEEPER SUPERVISOR Visits 0 PT-OP-B Current Condition Start: 11/11/17 07:25 Freq: Status: Active Protocol: Document 11/11/17 08:19 [facility] (Rec: 11/11/17 15:52 [facility] [id number]) Current Condition History of Current Condition Onset Date 11/06/17 Current Complaints neck & upper thoracic pain History of Current Condition Pt presents with neck pain after she woke up on Tuesday with pain from cranium to shoulder blade region, especially when she sat up or looked up or down. Pt had pain a few months ago at yoga when she was in forward fold for extended time, but that went away quickly, unlike this which is lingering. Pt reports when she woke up Tuesday her arms wither numb and she was face down. Reports no numbness since. Reports her elbow pops of of socket on her R side for the past few years. Reports she had pain after the long car ride when they moved here also, but it went away soon after. Prior Treatments and Tests none Treatment Goals Patient/Caregiver Goals Dec pain & improve posture PT-OP-C Subjective Start: 11/11/17 07:25 Freq: Status: Active Protocol: Document 04/20/18 11:40 [facility] (Rec: 04/20/18 11:47 [facility] [id number]) OP-PT Subjective Patient Comments Patient Comments Pt reports this past week she has had a couple instances where she turned her head and had a sharp pain radiate up her neck. PT-OP-F Manual Assessment Start: 11/11/17 07:25 Freq: Status: Active Protocol: Document 11/11/17 08:19 [facility] (Rec: 11/11/17 09:05 [facility] [id number]) Manual Assessments Soft Tissue Assessment Soft Tissue Mobility Assessment Tightness & tenderness: UT, scalenes, c spine paraspinals, SCM; fascial tension posteriorly & ant Joint Mobility Assessment Joint Mobility Assessment elevated first rib & stiffness in thoracic spine PT-OP-J Posture/Palpation/Skin Start: 11/11/17 07:25 Freq: Status: Active Protocol: Document 11/11/17 08:19 [facility] (Rec: 11/11/17 09:05 [facility] [id number]) Posture Evaluation [facility] Postural Classification System [facility] Postural Classifications Anterior/Posterior Vertebral Compression Test 1 Elbow Flexion Test 1 Comments Posture Comments significant fwd head & neck PT-OP-K Range of Motion Start: 11/11/17 07:25 Freq: Status: Active Protocol: Document 03/13/18 10:30 [facility] (Rec: 03/13/18 11:18 [facility] [id number]) Cervical Spine Range of Motion Cervical Spine Active Degrees Flexion 52 Extension 63 Rotation Left 80 Rotation Right 80 Lateral Flexion Left 47 Lateral Flexion Right 45 Comments pulling w/end range rotations PT-OP-L Special Tests Start: 11/11/17 07:25 Freq: Status: Active Protocol: Document 11/11/17 08:19 [facility] (Rec: 11/11/17 09:05 [facility] [id number]) Special Tests Cervical Spine Special Tests Spurling's Test Test Results neg Vertebral Artery Test Results neg B Alar Ligament Test Results neg Neural Special Tests- Upper Body Upper Limb Tension Test Test Results passive abd test Comments ~50 deg B Radial Nerve Tension Test Results L>R Ulnar Nerve Tension Test Results positive L; neg R Median Nerve Tension Test Results positive B Comments ~45 deg R & 60 deg L PT-OP-M Strength Start: 11/11/17 07:25 Freq: Status: Active Protocol: Document 03/13/18 10:30 [facility] (Rec: 03/13/18 11:18 [facility] [id number]) Shoulder Strength Shoulder Manual Muscle Testing Right Comments 5/5 Left Comments 5/5 PT-OP-Q Treatments Start: 11/11/17 07:25 Freq: Status: Active Protocol: Document 04/20/18 11:40 [facility] (Rec: 04/20/18 11:47 [facility] [id number]) Therapeutic Exercises Prone Exercises quadruped Prone Exercise Name quad position w/ focus on stability progressed to alt arm then alt leg lift Comments prgoress to alt opp with focus on scap & cervical positioning planks Prone Exercise Name plank w/ focus on neck & scapular position Sidelying Exercises side plank Sidelying Exercise Name side plank Comments focus on positioning Other Exercises class exercises Other Exercise Name RDL, row, biking, cleans Comments edu on appropriate form and progression through a few reps of each Manual Therapy Treatment Soft Tissue Mobilization SCM Body Location SCM Mobilization Type Rolling 1 Body Location cervical paraspinals, UT, levator, scalenes Mobilization Type Myofascial Release Strumming Trigger Point Release Body Position Hooklying Joint Mobilizations 1 Joint T1-2 Direction AP FM Comments supine w/chin tuck PT-OP-R Modalities Start: 11/11/17 07:25 Freq: Status: Active Protocol: Document 11/24/17 16:52 [facility] (Rec: 11/24/17 17:01 [facility] [id number]) Hot Pack/Cold Pack Treatment Hot Pack Location c/s Patient Position Hooklying Treatment Duration (minutes) 15 Patient Tolerance Good PT-OP-T Assessment and Plan Start: 11/11/17 07:25 Freq: Status: Active Protocol: Document 04/20/18 11:40 [facility] (Rec: 04/20/18 11:47 [facility] [id number]) Physical Therapy Assessment Goals Three Impairment posture Short Term Goal (STG) Indep HEP (good progress; ongoing progression) STG Duration 02/17/18-achieved progressing prn Swedger Goal (LTG) Pt will present with good posture without cueing (good progress; decreased need for cues) LTG Duration 05/11/18 Two Impairment NDI [facility]cf Goal (LTG) 0 to show functional improvement to allow normal activities without pain (good progress, now 8%) LTG Duration 05/11/18improving One Impairment pain Swedger Goal (LTG) 0/10 with all activities (good progress; decreased to 2/10) LTG Duration 03/10/18 achieved Assessment Summary Assessment Pt able to demonstrate good form with typical exercises with significant cueing. She cont to improve with overall posture but has difficulty in prone positions, keeping appropriate cervical positioning. Physical Therapy Plan Frequency and Duration Frequency of Treatment 6 visits Duration of Treatment 2 months Plan of Care Start Date 03/13/19 Plan of Care End Date 05/11/18 Next Visit Focus/Plan Next Note Type Treatment Note Next Visit Plan upper cevical mobility & upper thoracic
--- NOTE | 2018-05-01 17:54 | PT.OTN ---
Current Diagnoses Cervicalgia (05/01/18) Physical Therapy Treatment Note PT-OP-A Visit Information Start: 11/11/17 07:25 Freq: Status: Active Protocol: Document 05/01/18 17:47 [facility] (Rec: 05/01/18 17:54 [facility] [id number]) Out-Patient Physical Therapy Visit Information Visit Information Visit Type Treatment Note Visit Start Time 09:00 Visit Stop Time 09:40 Total Visit Minutes 40 Visit Number 11 Number of CROSSWORD PUZZLE MAKER Visits 0 PT-OP-B Current Condition Start: 11/11/17 07:25 Freq: Status: Active Protocol: Document 11/11/17 08:19 [facility] (Rec: 11/11/17 15:52 [facility] [id number]) Current Condition History of Current Condition Onset Date 11/06/17 Current Complaints neck & upper thoracic pain History of Current Condition Pt presents with neck pain after she woke up on Tuesday with pain from cranium to shoulder blade region, especially when she sat up or looked up or down. Pt had pain a few months ago at yoga when she was in forward fold for extended time, but that went away quickly, unlike this which is lingering. Pt reports when she woke up Tuesday her arms wither numb and she was face down. Reports no numbness since. Reports her elbow pops of of socket on her R side for the past few years. Reports she had pain after the long car ride when they moved here also, but it went away soon after. Prior Treatments and Tests none Treatment Goals Patient/Caregiver Goals Dec pain & improve posture PT-OP-C Subjective Start: 11/11/17 07:25 Freq: Status: Active Protocol: Document 05/01/18 17:47 [facility] (Rec: 05/01/18 17:54 [facility] [id number]) OP-PT Subjective Patient Comments Patient Comments Pt reports she has noticed some stiffness in neck and upper thoracic. PT-OP-F Manual Assessment Start: 11/11/17 07:25 Freq: Status: Active Protocol: Document 11/11/17 08:19 [facility] (Rec: 11/11/17 09:05 [facility] [id number]) Manual Assessments Soft Tissue Assessment Soft Tissue Mobility Assessment Tightness & tenderness: UT, scalenes, c spine paraspinals, SCM; fascial tension posteriorly & ant Joint Mobility Assessment Joint Mobility Assessment elevated first rib & stiffness in thoracic spine PT-OP-J Posture/Palpation/Skin Start: 11/11/17 07:25 Freq: Status: Active Protocol: Document 11/11/17 08:19 [facility] (Rec: 11/11/17 09:05 [facility] [id number]) Posture Evaluation [facility] Postural Classification System [facility] Postural Classifications Anterior/Posterior Vertebral Compression Test 1 Elbow Flexion Test 1 Comments Posture Comments significant fwd head & neck PT-OP-K Range of Motion Start: 11/11/17 07:25 Freq: Status: Active Protocol: Document 03/13/18 10:30 [facility] (Rec: 03/13/18 11:18 [facility] [id number]) Cervical Spine Range of Motion Cervical Spine Active Degrees Flexion 52 Extension 63 Rotation Left 80 Rotation Right 80 Lateral Flexion Left 47 Lateral Flexion Right 45 Comments pulling w/end range rotations PT-OP-L Special Tests Start: 11/11/17 07:25 Freq: Status: Active Protocol: Document 11/11/17 08:19 [facility] (Rec: 11/11/17 09:05 [facility] [id number]) Special Tests Cervical Spine Special Tests Spurling's Test Test Results neg Vertebral Artery Test Results neg B Alar Ligament Test Results neg Neural Special Tests- Upper Body Upper Limb Tension Test Test Results passive abd test Comments ~50 deg B Radial Nerve Tension Test Results L>R Ulnar Nerve Tension Test Results positive L; neg R Median Nerve Tension Test Results positive B Comments ~45 deg R & 60 deg L PT-OP-M Strength Start: 11/11/17 07:25 Freq: Status: Active Protocol: Document 03/13/18 10:30 [facility] (Rec: 03/13/18 11:18 [facility] [id number]) Shoulder Strength Shoulder Manual Muscle Testing Right Comments 5/5 Left Comments 5/5 PT-OP-Q Treatments Start: 11/11/17 07:25 Freq: Status: Active Protocol: Document 05/01/18 17:47 [facility] (Rec: 05/01/18 17:54 [facility] [id number]) Therapeutic Exercises Prone Exercises quadruped Prone Exercise Name quad position w/ focus on stability progressed to alt arm then alt leg lift Comments prgoress to alt opp with focus on scap & cervical positioning planks Prone Exercise Name plank w/ focus on neck & scapular position Sitting Exercises 1 Sitting Exercise Name axial elongation Manual Therapy Treatment Soft Tissue Mobilization SCM Body Location SCM Mobilization Type Rolling 1 Body Location cervical paraspinals, UT, levator, scalenes Mobilization Type Myofascial Release Strumming Trigger Point Release Comments seated & hooklying Joint Mobilizations 1 Joint T1-4 Direction AP FM & L UPA Comments prone & seated w/cover position PT-OP-R Modalities Start: 11/11/17 07:25 Freq: Status: Active Protocol: Document 11/24/17 16:52 [facility] (Rec: 11/24/17 17:01 [facility] [id number]) Hot Pack/Cold Pack Treatment Hot Pack Location c/s Patient Position Hooklying Treatment Duration (minutes) 15 Patient Tolerance Good PT-OP-T Assessment and Plan Start: 11/11/17 07:25 Freq: Status: Active Protocol: Document 05/01/18 17:47 [facility] (Rec: 05/01/18 17:54 [facility] [id number]) Physical Therapy Assessment Goals stiffness Mcfp Goal (LTG) Pt will report no stiffness during daily life in cervical region. LTG Duration 07/09/18 Three Impairment posture Short Term Goal (STG) Indep HEP (good progress; ongoing progression) STG Duration 02/17/18-achieved progressing prn Heavy Machinery Assembler Goal (LTG) Pt will present with good posture without cueing (good progress; decreased need for cues) LTG Duration 05/11/18 achieved Two Impairment NDI Mcfp Goal (LTG) 0 to show functional improvement to allow normal activities without pain (good progress, now 8%) LTG Duration 06/08/18improving One Impairment pain Mcfp Goal (LTG) 0/10 with all activities (good progress; decreased to 2/10) LTG Duration 03/10/18 achieved Assessment Summary Assessment Pt is improving with stability but still required cueing for scapular and cervical posture in propped positions. Physical Therapy Plan Frequency and Duration Frequency of Treatment 6 visits Duration of Treatment 2 months Plan of Care Start Date 05/01/18 Plan of Care End Date 06/29/18 Therapeutic Interventions Therapeutic Interventions Home Exercise Program Joint Mobilizations Manual Therapy Self-Care/Home Management Soft Tissue Mobilization Taping Therapeutic Activities Therapeutic Exercises Modalities Cold Pack/Ice Massage Electric Stimulation Hot Packs Traction- Mechanical Ultrasound Next Visit Focus/Plan Next Note Type Treatment Note Next Visit Plan cont to work on upper thoracic mobility & cervical stability
--- NOTE | 2018-05-01 17:54 | PT.OPPOC ---
Current Diagnoses Cervicalgia (05/01/18) Provider Visit Care Team Role Provider Type Phylicia Garcia DO Attending Provider Physician Primary Care Provider Specialty: Family Practice Address: [address] [place] [address], [id number] Email: [email or web address] Plan Of Care PT-OP-T Assessment and Plan Start: 11/11/17 07:25 Freq: Status: Active Protocol: Document 05/01/18 17:47 [facility] (Rec: 05/01/18 17:54 [facility] [id number]) Physical Therapy Assessment Goals stiffness Station Superintendent Goal (LTG) Pt will report no stiffness during daily life in cervical region. LTG Duration 07/09/18 Three Impairment posture Short Term Goal (STG) Indep HEP (good progress; ongoing progression) STG Duration 02/17/18-achieved progressing prn Station Superintendent Goal (LTG) Pt will present with good posture without cueing (good progress; decreased need for cues) LTG Duration 05/11/18 achieved Two Impairment NDI Intermediate Goal (LTG) 0 to show functional improvement to allow normal activities without pain (good progress, now 8%) LTG Duration 06/08/18improving One Impairment pain Intermediate Goal (LTG) 0/10 with all activities (good progress; decreased to 2/10) LTG Duration 03/10/18 achieved Assessment Summary Assessment Pt is improving with stability but still required cueing for scapular and cervical posture in propped positions. Physical Therapy Plan Frequency and Duration Frequency of Treatment 6 visits Duration of Treatment 2 months Plan of Care Start Date 05/01/18 Plan of Care End Date 06/29/18 Therapeutic Interventions Therapeutic Interventions Home Exercise Program Joint Mobilizations Manual Therapy Self-Care/Home Management Soft Tissue Mobilization Taping Therapeutic Activities Therapeutic Exercises Modalities Cold Pack/Ice Massage Electric Stimulation Hot Packs Traction- Mechanical Ultrasound Next Visit Focus/Plan Next Note Type Treatment Note Next Visit Plan cont to work on upper thoracic mobility & cervical stability Plan of Care Dates Plan of Care Start Date 05/01/18 Plan of Care End Date 06/29/18 Please Sign and Return: I have reviewed this Plan of Care and certify that the skilled therapy services above are required to meet the patient?s needs. Physician Signature Date Printed Name and Credentials Clinical Instructor Signature Printed Name and Credentials
--- NOTE | 2018-06-13 16:34 | PT.OTN ---
Current Diagnoses Cervicalgia (06/13/18) Physical Therapy Treatment Note PT-OP-A Visit Information Start: 11/11/17 07:25 Freq: Status: Active Protocol: Document 06/13/18 16:27 [facility] (Rec: 06/13/18 16:34 [facility] [id number]) Out-Patient Physical Therapy Visit Information Visit Information Visit Type Treatment Note Visit Start Time 15:41 Visit Stop Time 16:26 Total Visit Minutes 45 Visit Number [address]GE Visits 0 PT-OP-B Current Condition Start: 11/11/17 07:25 Freq: Status: Active Protocol: Document 11/11/17 08:19 [facility] (Rec: 11/11/17 15:52 [facility] [id number]) Current Condition History of Current Condition Onset Date 11/06/17 Current Complaints neck & upper thoracic pain History of Current Condition Pt presents with neck pain after she woke up on Tuesday with pain from cranium to shoulder blade region, especially when she sat up or looked up or down. Pt had pain a few months ago at yoga when she was in forward fold for extended time, but that went away quickly, unlike this which is lingering. Pt reports when she woke up Tuesday her arms wither numb and she was face down. Reports no numbness since. Reports her elbow pops of of socket on her R side for the past few years. Reports she had pain after the long car ride when they moved here also, but it went away soon after. Prior Treatments and Tests none Treatment Goals Patient/Caregiver Goals Dec pain & improve posture PT-OP-C Subjective Start: 11/11/17 07:25 Freq: Status: Active Protocol: Document 06/13/18 16:27 [facility] (Rec: 06/13/18 16:34 [facility] [id number]) OP-PT Subjective Patient Comments Patient Comments Pt reports sometimes when she reaches behind or turns she gets sharp pains. PT-OP-F Manual Assessment Start: 11/11/17 07:25 Freq: Status: Active Protocol: Document 11/11/17 08:19 [facility] (Rec: 11/11/17 09:05 [facility] [id number]) Manual Assessments Soft Tissue Assessment Soft Tissue Mobility Assessment Tightness & tenderness: UT, scalenes, c spine paraspinals, SCM; fascial tension posteriorly & ant Joint Mobility Assessment Joint Mobility Assessment elevated first rib & stiffness in thoracic spine PT-OP-J Posture/Palpation/Skin Start: 11/11/17 07:25 Freq: Status: Active Protocol: Document 11/11/17 08:19 [facility] (Rec: 11/11/17 09:05 [facility] [id number]) Posture Evaluation [facility] Postural Classification System [facility] Postural Classifications Anterior/Posterior Vertebral Compression Test 1 Elbow Flexion Test 1 Comments Posture Comments significant fwd head & neck PT-OP-K Range of Motion Start: 11/11/17 07:25 Freq: Status: Active Protocol: Document 03/13/18 10:30 [facility] (Rec: 03/13/18 11:18 [facility] [id number]) Cervical Spine Range of Motion Cervical Spine Active Degrees Flexion 52 Extension 63 Rotation Left 80 Rotation Right 80 Lateral Flexion Left 47 Lateral Flexion Right 45 Comments pulling w/end range rotations PT-OP-L Special Tests Start: 11/11/17 07:25 Freq: Status: Active Protocol: Document 11/11/17 08:19 [facility] (Rec: 11/11/17 09:05 [facility] [id number]) Special Tests Cervical Spine Special Tests Spurling's Test Test Results neg Vertebral Artery Test Results neg B Alar Ligament Test Results neg Neural Special Tests- Upper Body Upper Limb Tension Test Test Results passive abd test Comments ~50 deg B Radial Nerve Tension Test Results L>R Ulnar Nerve Tension Test Results positive L; neg R Median Nerve Tension Test Results positive B Comments ~45 deg R & 60 deg L PT-OP-M Strength Start: 11/11/17 07:25 Freq: Status: Active Protocol: Document 03/13/18 10:30 [facility] (Rec: 03/13/18 11:18 [facility] [id number]) Shoulder Strength Shoulder Manual Muscle Testing Right Comments 5/5 Left Comments 5/5 PT-OP-Q Treatments Start: 11/11/17 07:25 Freq: Status: Active Protocol: Document 06/13/18 16:27 [facility] (Rec: 06/13/18 16:34 [facility] [id number]) Gym Equipment Cable Column (Body Solid) row Resistance 2 Reps/Time 10-stopped d/t pain Lat Pull Down Resistance 3 Reps/Time 10 Therapeutic Exercises Sidelying Exercises 1 Sidelying Exercise Name roll & reach Side bilateral Standing Exercises 1 Standing Exercise Name row Side bilateral Equipment Used no resistance & L1 Reps/Minutes 10 ea Manual Therapy Treatment Soft Tissue Mobilization pec Body Location pec R Mobilization Type Rolling SCM Body Location SCM Mobilization Type Rolling 2 Body Location SOR Mobilization Type Sustained Pressure 1 Body Location cervical paraspinals, UT, levator, scalenes Mobilization Type Myofascial Release Strumming Trigger Point Release Comments seated & hooklying Joint Mobilizations 1 Joint T1-4 Direction PA FM Comments supine Manual Traction Cervical Body Position Supine Reps/Duration 2 min PT-OP-R Modalities Start: 11/11/17 07:25 Freq: Status: Active Protocol: Document 11/24/17 16:52 [facility] (Rec: 11/24/17 17:01 [facility] [id number]) Hot Pack/Cold Pack Treatment Hot Pack Location c/s Patient Position Hooklying Treatment Duration (minutes) 15 Patient Tolerance Good PT-OP-T Assessment and Plan Start: 11/11/17 07:25 Freq: Status: Active Protocol: Document 06/13/18 16:27 [facility] (Rec: 06/13/18 16:34 [facility] [id number]) Physical Therapy Assessment Goals pain Wire Coiler Goal (LTG) Pt will report no instances of pain during daily life LTG Duration 08/13/18 stiffness Penitentiary Goal (LTG) Pt will report no stiffness during daily life in cervical region. LTG Duration achieved Three Impairment posture Short Term Goal (STG) Indep HEP (good progress; ongoing progression) STG Duration 02/17/18-achieved progressing prn Penitentiary Goal (LTG) Pt will present with good posture without cueing (good progress; decreased need for cues) LTG Duration 05/11/18 achieved Two Impairment NDI Wire Coiler Goal (LTG) 0 to show functional improvement to allow normal activities without pain (good progress, now 8%) LTG Duration 08/13/18improving Assessment Summary Assessment Pt had difficulty with rowing without getting cervical tightness. She is able to do row without weight without pain but when resistance was added, she got neck pain. cont weakness in scap stability mm . She is improving in postural stability & dec instances of pain but still occasional pain . Physical Therapy Plan Frequency and Duration Frequency of Treatment 6 visits Duration of Treatment 2 months Plan of Care Start Date 06/13/18 Plan of Care End Date 08/13/18 Therapeutic Interventions Therapeutic Interventions Home Exercise Program Joint Mobilizations Manual Therapy Self-Care/Home Management Soft Tissue Mobilization Taping Therapeutic Activities Therapeutic Exercises Modalities Cold Pack/Ice Massage Electric Stimulation Hot Packs Traction- Mechanical Ultrasound Next Visit Focus/Plan Next Note Type Treatment Note Next Visit Plan work on pulling motion
--- NOTE | 2018-06-13 18:29 | PT.OPPOC ---
Current Diagnoses Cervicalgia (08/09/18) Provider Visit Care Team Role Provider Type Phylicia Garcia DO Attending Provider Physician Primary Care Provider Specialty: Family Practice Address: [address] [place] [address], [phone] Email: [email or web address] PT-OP-T Assessment and Plan Start: 11/11/17 07:25 Freq: Status: Active Protocol: Document 06/13/18 16:27 [facility] (Rec: 06/13/18 16:34 [facility] [id number]) Physical Therapy Assessment Goals pain Correction Goal (LTG) Pt will report no instances of pain during daily life LTG Duration 08/13/18 stiffness Correction Goal (LTG) Pt will report no stiffness during daily life in cervical region. LTG Duration achieved Three Impairment posture Short Term Goal (STG) Indep HEP (good progress; ongoing progression) STG Duration 02/17/18-achieved progressing prn Journalists And Other Writers Goal (LTG) Pt will present with good posture without cueing (good progress; decreased need for cues) LTG Duration 05/11/18 achieved Two Impairment NDI Correction Goal (LTG) 0 to show functional improvement to allow normal activities without pain (good progress, now 8%) LTG Duration 08/13/18improving Assessment Summary Assessment Pt had difficulty with rowing without getting cervical tightness. She is able to do row without weight without pain but when resistance was added, she got neck pain. cont weakness in scap stability mm . She is improving in postural stability & dec instances of pain but still occasional pain . Physical Therapy Plan Frequency and Duration Frequency of Treatment 6 visits Duration of Treatment 2 months Plan of Care Start Date 06/13/18 Plan of Care End Date 08/13/18 Therapeutic Interventions Therapeutic Interventions Home Exercise Program Joint Mobilizations Manual Therapy Self-Care/Home Management Soft Tissue Mobilization Taping Therapeutic Activities Therapeutic Exercises Modalities Cold Pack/Ice Massage Electric Stimulation Hot Packs Traction- Mechanical Ultrasound Next Visit Focus/Plan Next Note Type Treatment Note Next Visit Plan work on pulling motion Plan of Care Dates Plan of Care Start Date 06/13/18 Plan of Care End Date 08/13/18 Please Sign and Return: I have reviewed this Plan of Care and certify that the skilled therapy services above are required to meet the patient?s needs. Physician Signature Date Printed Name and Credentials Clinical Instructor Signature Printed Name and Credentials
--- NOTE | 2018-08-09 10:32 | PT.OTN ---
Current Diagnoses Cervicalgia (08/09/18) Physical Therapy Treatment Note PT-OP-A Visit Information Start: 11/11/17 07:25 Freq: Status: Active Protocol: Document 08/09/18 10:29 [facility] (Rec: 08/09/18 10:32 [facility] [id number]) Out-Patient Physical Therapy Visit Information Visit Information Visit Type Discharge Summary Visit Start Time 09:40 Visit Stop Time 10:25 Total Visit Minutes 45 Visit Number 13 Number of EDUCATION PROFESSOR Visits 0 PT-OP-B Current Condition Start: 11/11/17 07:25 Freq: Status: Active Protocol: Document 11/11/17 08:19 [facility] (Rec: 11/11/17 15:52 [facility] [id number]) Current Condition History of Current Condition Onset Date 11/06/17 Current Complaints neck & upper thoracic pain History of Current Condition Pt presents with neck pain after she woke up on Tuesday with pain from cranium to shoulder blade region, especially when she sat up or looked up or down. Pt had pain a few months ago at yoga when she was in forward fold for extended time, but that went away quickly, unlike this which is lingering. Pt reports when she woke up Tuesday her arms wither numb and she was face down. Reports no numbness since. Reports her elbow pops of of socket on her R side for the past few years. Reports she had pain after the long car ride when they moved here also, but it went away soon after. Prior Treatments and Tests none Treatment Goals Patient/Caregiver Goals Dec pain & improve posture PT-OP-C Subjective Start: 11/11/17 07:25 Freq: Status: Active Protocol: Document 08/09/18 10:29 [facility] (Rec: 08/09/18 10:32 [facility] [id number]) OP-PT Subjective Patient Comments Patient Comments Pt reports when sehw as sittign in the car and turning to check on her dog in back seat often, she noted pain that she was able to stretch to relieve. PT-OP-F Manual Assessment Start: 11/11/17 07:25 Freq: Status: Active Protocol: Document 11/11/17 08:19 [facility] (Rec: 11/11/17 09:05 [facility] [id number]) Manual Assessments Soft Tissue Assessment Soft Tissue Mobility Assessment Tightness & tenderness: UT, scalenes, c spine paraspinals, SCM; fascial tension posteriorly & ant Joint Mobility Assessment Joint Mobility Assessment elevated first rib & stiffness in thoracic spine PT-OP-J Posture/Palpation/Skin Start: 11/11/17 07:25 Freq: Status: Active Protocol: Document 11/11/17 08:19 [facility] (Rec: 11/11/17 09:05 [facility] [id number]) Posture Evaluation [facility] Postural Classification System [facility] Postural Classifications Anterior/Posterior Vertebral Compression Test 1 Elbow Flexion Test 1 Comments Posture Comments significant fwd head & neck PT-OP-K Range of Motion Start: 11/11/17 07:25 Freq: Status: Active Protocol: Document 03/13/18 10:30 [facility] (Rec: 03/13/18 11:18 [facility] [id number]) Cervical Spine Range of Motion Cervical Spine Active Degrees Flexion 52 Extension 63 Rotation Left 80 Rotation Right 80 Lateral Flexion Left 47 Lateral Flexion Right 45 Comments pulling w/end range rotations PT-OP-L Special Tests Start: 11/11/17 07:25 Freq: Status: Active Protocol: Document 11/11/17 08:19 [facility] (Rec: 11/11/17 09:05 [facility] [id number]) Special Tests Cervical Spine Special Tests Spurling's Test Test Results neg Vertebral Artery Test Results neg B Alar Ligament Test Results neg Neural Special Tests- Upper Body Upper Limb Tension Test Test Results passive abd test Comments ~50 deg B Radial Nerve Tension Test Results L>R Ulnar Nerve Tension Test Results positive L; neg R Median Nerve Tension Test Results positive B Comments ~45 deg R & 60 deg L PT-OP-M Strength Start: 11/11/17 07:25 Freq: Status: Active Protocol: Document 03/13/18 10:30 [facility] (Rec: 03/13/18 11:18 [facility] [id number]) Shoulder Strength Shoulder Manual Muscle Testing Right Comments 5/5 Left Comments 5/5 PT-OP-Q Treatments Start: 11/11/17 07:25 Freq: Status: Active Protocol: Document 08/09/18 10:29 [facility] (Rec: 08/09/18 10:32 [facility] [id number]) Therapeutic Exercises Supine Exercises 2 Supine Exercise Name chin tuck against 2 tennis balls 1 Supine Exercise Name axial elongation Manual Therapy Treatment Soft Tissue Mobilization SCM Body Location SCM Mobilization Type Rolling Comments also along clavicle borders R 2 Body Location SOR Mobilization Type Sustained Pressure 1 Body Location cervical paraspinals, UT, levator, scalenes Mobilization Type Myofascial Release Strumming Trigger Point Release Comments seated & hooklying Joint Mobilizations ribs Joint 1-3 R Direction AP FM 2 Joint C6-7 Direction AP 1 Joint T1-4 Direction PA FM Comments supine PT-OP-R Modalities Start: 11/11/17 07:25 Freq: Status: Active Protocol: Document 11/24/17 16:52 [facility] (Rec: 11/24/17 17:01 [facility] [id number]) Hot Pack/Cold Pack Treatment Hot Pack Location c/s Patient Position Hooklying Treatment Duration (minutes) 15 Patient Tolerance Good PT-OP-T Assessment and Plan Start: 11/11/17 07:25 Freq: Status: Active Protocol: Document 08/09/18 10:29 [facility] (Rec: 08/09/18 10:32 [facility] [id number]) Physical Therapy Assessment Goals pain Intermediate Goal (LTG) Pt will report no instances of pain during daily life LTG Duration 08/13/18 achieved on most days stiffness Barrel Maker Goal (LTG) Pt will report no stiffness during daily life in cervical region. LTG Duration achieved Three Impairment posture Short Term Goal (STG) Indep HEP (good progress; ongoing progression) STG Duration 02/17/18-achieved progressing prn Intermediate Goal (LTG) Pt will present with good posture without cueing (good progress; decreased need for cues) LTG Duration 05/11/18 achieved Two Impairment NDI Intermediate Goal (LTG) 0 to show functional improvement to allow normal activities without pain (good progress, now 8%) LTG Duration 08/13/18improving-minimal issues Assessment Summary Assessment Pt has had limited visits d/t scheduling conflicts but has been consistant with stretching. She cont to improve her posture and was educated on importance of cont strengthening. She has had only 1 noteabe painful bout in past 2 months. She is d/c to home program at this time. Full cervical ROM at this time Physical Therapy Plan Discharge Physical Therapy Discharge Reasons Goals Met
== END 2018-08-10 10:27 | disposition home or self-care (01) ==
LOC: PHYS 09:45
PROVIDERS: PCP Family Medicine; Visit Provider Family Medicine
DX: M54.2 Cervicalgia (principal)
CPT/HCPCS: 97010; 97110; 97140; 97162; 97530; 97535

== ENCOUNTER → 2018-10-04 16:09 | Outpatient (CLI) | payer OTHER, SELFPAY ==
--- NOTE | 2018-10-04 16:11 | DI.US.S_ITS ---
PROCEDURE: US OB <= 14 WEEKS FETUS INDICATIONS: INITIAL US: DATING AND VIBILITY PLEASE OUTSIDE/PRIOR DATING DATA: Last menstrual period (LMP): 08/15/18. LMP-based estimated date of delivery (IAN): 05/22/19. First dating scan (date and location): 10/04/18, this study. Estimated date of delivery (IAN) from first dating scan: 05/20/19. TECHNIQUE: Real-time scanning was performed of the fetus and maternal pelvic organs, with image documentation. Endovaginal scanning was also performed to better visualize the fetus and maternal ovaries. COMPARISON: None. FINDINGS: Embryo: [place]-rump length 1.2 cm correlates with gestational age of 7 weeks 3 days and there is 149 beats per minute heart rate. Maternal cervical length is 3.7 cm. Measurement variability in dating: +/- 4 weeks by LMP, +/- 7 days by mean sac diameter (use before 6 weeks gestation if crown-rump length not able to be measured), +/- 5 days by crown-rump length (up to 8 weeks 6 days gestation), +/- 7 days by crown-rump length (up to 13 weeks 6 days gestation). Maternal organs: Ovaries normal considering gestational status. Limited images through the kidneys demonstrate no hydronephrosis. IMPRESSION: Single living intrauterine gestation with estimated date of delivery 05/20/19 and current gestational age of 7 weeks 3 days, plus or -5 days. Dictated by: Benny Hines M.D. on 10/04/2018 at 17:36 Approved by: Benny Hines M.D. on 10/04/2018 at 17:37
== END ==
PROVIDERS: PCP Family Medicine; Visit Provider Family Medicine
DX: Z34.01 Encounter for supervision of normal first pregnancy, first trimester (principal); Z3A.01 Less than 8 weeks gestation of pregnancy
CPT/HCPCS: 76801

== ENCOUNTER → 2018-10-13 15:02 | Outpatient (CLI) | payer OTHER, SELFPAY ==
[2018-10-13 15:22] LABS: Add Manual Diff / Slide Review NO; Basophils Absolute Auto 100 /uL (0-100); Basophils Percent Auto 0.7 % (0-2); Eosinophils Absolute Auto 100 /uL (0-450); Eosinophils Percent Auto 1.5 % (2-4); Hematocrit 36.2 % (36-46); Hemoglobin 11.9 g/dL (12.0-16.0); Lymphocytes Absolute Auto 1800 /uL (1100-4500); Mean Corpuscular HGB Conc 32.8 % (30-36); Mean Corpuscular Volume 85.3 fL (80-100); Monocytes Absolute Auto 600 /uL (0-900); Monocytes Percent Auto 6.9 % (3-14); Neutrophils Absolute Auto 6000 /uL (1500-7000); Neutrophils Percent Auto 69.9 % (50-75); Platelet Count 270 X10^3/uL (150-400); Red Blood Cell Count 4.24 X10^6/uL (4.0-5.2); Red Cell Distribution Width 12.2 % (11.6-14.8); White Blood Cell Count 8.6 X10^3/uL (4.5-11.0)
[2018-10-13 15:26] LABS: Appearance Urine UA SL CLOUDY; Bilirubin Urine UA NEGATIVE (NEGATIVE); Color Urine UA YELLOW; Glucose Urine UA NEGATIVE (Negative); Ketones Urine UA NEGATIVE (NEGATIVE); Leukocyte Esterase Urine UA NEGATIVE (NEGATIVE); Nitrite Urine UA NEGATIVE (Negative); Occult Blood Urine UA NEGATIVE (Negative); Protein Urine UA NEGATIVE (Negative); Specific Gravity Urine UA 1.025 (1.000-1.035); Urobilinogen Urine UA 0.2 E.U./dL (0.2); pH Urine UA 5.5 (4.5-8.0)
[2018-10-13 16:55] LABS: HIV 1 & 2 Ab/Ag 4th Gen Combo NEGATIVE (NEGATIVE); Hep C Virus Ab w/Reflex Quant NEGATIVE s/c (NEGATIVE); Hepatitis B Surface Antigen NEGATIVE s/c (NEGATIVE)
[2018-10-15 16:06] LABS: RPR Screen Nonreactive (Nonreactive)
== END ==
PROVIDERS: PCP Family Medicine; Visit Provider Family Medicine
DX: Z34.01 Encounter for supervision of normal first pregnancy, first trimester (principal)
CPT/HCPCS: 36415; 80055; 81003; 86787; 86803; 86850; 86900; 86901; 87086; 87389

== ENCOUNTER → 2018-11-17 08:39 | Outpatient (CLI) | payer OTHER, SELFPAY | PROVIDERS: PCP Family Medicine | DX: Z36.0 Encounter for antenatal screening for chromosomal anomalies (principal); Z36.1 Encounter for antenatal screening for raised alphafetoprotein level; Z3A.13 13 weeks gestation of pregnancy | CPT/HCPCS: 36415; 84163; 84702 ==

== ENCOUNTER → 2018-12-05 11:49 | Outpatient (CLI) | payer OTHER, SELFPAY | PROVIDERS: PCP Family Medicine | DX: Z23 Encounter for immunization (principal) | CPT/HCPCS: 90471; 90686 ==

== ENCOUNTER → 2018-12-06 12:07 | Outpatient (CLI) | payer OTHER, SELFPAY ==
[2018-12-08 13:16] LABS: Sequential Screen 2nd Trimeste SCREEN NEGATIVE
== END ==
PROVIDERS: PCP Family Medicine
DX: Z34.82 Encounter for supervision of other normal pregnancy, second trimester (principal); Z3A.16 16 weeks gestation of pregnancy
CPT/HCPCS: 36415; 82105; 82677; 84163; 84702; 86336

== ENCOUNTER → 2019-01-05 14:31 | Outpatient (CLI) | payer OTHER, SELFPAY ==
--- NOTE | 2019-01-05 14:33 | DI.US.S_ITS ---
PROCEDURE: US OB >= 14 WEEKS FETUS INDICATIONS: ANATOMY OUTSIDE/PRIOR DATING DATA: Last menstrual period (LMP): 08/15/18. LMP-based estimated date of delivery (IAN): 05/22/19. First dating scan (date and location): 10/04/18, this study. Estimated date of delivery (IAN) from first dating scan: 05/20/19. TECHNIQUE: Real-time scanning was performed of the fetus, with image documentation and biometric measurements. Endovaginal scanning: No COMPARISON: [facility], OB <= 14 WEEKS FETUS, 10/04/2018, 16:32. FINDINGS: General: A single living intrauterine gestation is present. Presentation: Vertex. Placenta: Placental position is anterior, without previa. Amniotic fluid index: 15.4 cm, normal range is 5-24 cm. heart rate: 139 beats per minute. Maternal cervical canal: 4.6 cm long. Normal lower limit is 2.5 cm. biometrics: Biparietal diameter: 21 weeks 3 days Head circumference: 20 weeks 6 days Abdominal circumference: 21 weeks 4 days Femur length: 21 weeks 3 days Estimated gestational age from initial scan: 20 weeks 5 days Composite gestational age from present scan: 20 weeks 2 days Estimated weight and percentile: 423 g; 82nd percentile Measurement variability for biometric dating: +/- 7 days from 14 weeks to 15 weeks 6 days gestation, +/- 10 days from 16 weeks to 21 weeks 6 days gestation, +/- 2 weeks from 22 weeks to 27 weeks 6 days gestation, +/- 3 weeks for 28 weeks gestation or later. weight reference: 4500 g or EFW >90/95% is considered macrosomia or large for gestational age. EFW <10% is small for gestational age. EFW 5% or less is considered intra-uterine growth restriction. Anatomic survey: Neuro: Ventricles are non-dilated at less than 10 mm. Cisterna magna is normal at 3-11 mm. Cerebellum is normal in size and morphology. Nuchal skin fold: Normal at less than 6 mm between 14-21 weeks gestational age. Face: Nose and lips, facial profile are normal. Spine: No evidence for spina bifida. Heart: 4-chambered heart is present, with normal ventricular outflow tracts. Diaphragm: Diaphragm is intact. Stomach: Left-sided stomach is present. Kidneys: No hydronephrosis. Normal is less than 5 mm in 2nd trimester, less than 7 mm in 3rd trimester. Cord: 3-vessel cord has orthotopic insertion. Bladder: Normal in size. Extremities: All 4 extremities identified. IMPRESSION: 1. Single living IUP redemonstrated and interval growth is normal. 2. Normal anatomic survey. Dictated by: Domenic GARCÍA Interpreted: Ana Chavarria MD on 01/05/2019 at 15:33 Approved by: Ana Chavarria M.D. on 01/05/2019 at 16:35
== END ==
PROVIDERS: PCP Family Medicine; Visit Provider Family Medicine
DX: Z36.89 Encounter for other specified antenatal screening (principal); Z3A.20 20 weeks gestation of pregnancy
CPT/HCPCS: 76811

== ENCOUNTER → 2019-02-17 08:04 | Outpatient (CLI) | payer OTHER, SELFPAY ==
[2019-02-17 11:19] LABS: GTT (PREG) 1 Hour PP 50gm Dose 133 mg/dL (76-139)
== END ==
PROVIDERS: PCP Family Medicine; Visit Provider Family Medicine
DX: Z34.90 Encounter for supervision of normal pregnancy, unspecified, unspecified trimester (principal); Z3A.26 26 weeks gestation of pregnancy
CPT/HCPCS: 36415; 82950; 85014; 85018

== ENCOUNTER → 2019-03-31 11:18 | Outpatient (CLI) | payer OTHER, SELFPAY ==
[2019-03-31 11:58] LABS: Hematocrit 32.2 % (36-46); Hemoglobin 10.6 g/dL (12.0-16.0)
== END ==
PROVIDERS: PCP Family Medicine; Visit Provider Family Medicine
DX: D64.9 Anemia, unspecified (principal)
CPT/HCPCS: 36415; 85014; 85018

== ENCOUNTER → 2019-04-27 13:45 | Outpatient (CLI) | payer OTHER, SELFPAY ==
[2019-04-28 15:33] LABS: Strep Grp B PCR NEG for Grp B Strep
== END ==
PROVIDERS: PCP Family Medicine; Visit Provider Family Medicine
DX: Z34.90 Encounter for supervision of normal pregnancy, unspecified, unspecified trimester (principal); Z3A.36 36 weeks gestation of pregnancy
CPT/HCPCS: 87653

== ENCOUNTER 2019-05-23 19:22 | Inpatient (IN) | payer OTHER, SELFPAY ==
[2019-05-23 20:27] VITALS: BP 108/64
[2019-05-23 21:53] LABS: Add Manual Diff / Slide Review NO; Basophils Absolute Auto 0 /uL (0-100); Basophils Percent Auto 0.4 % (0-2); Eosinophils Absolute Auto 100 /uL (0-450); Eosinophils Percent Auto 0.5 % (2-4); Hemoglobin 11.8 g/dL (12.0-16.0); Lymphocytes Absolute Auto 1900 /uL (1100-4500); Lymphocytes Percent Auto 17.1 % (25-40); Mean Corpuscular HGB Conc 32.8 % (30-36); Mean Corpuscular Hemoglobin 28.7 PG (26-34); Mean Corpuscular Volume 87.3 fL (80-100); Monocytes Absolute Auto 700 /uL (0-900); Monocytes Percent Auto 6.1 % (3-14); Neutrophils Absolute Auto 8600 /uL (1500-7000); Neutrophils Percent Auto 75.9 % (50-75); Platelet Count 186 X10^3/uL (150-400); Red Blood Cell Count 4.12 X10^6/uL (4.0-5.2); Red Cell Distribution Width 14.3 % (11.6-14.8); White Blood Cell Count 11.3 X10^3/uL (4.5-11.0)
[2019-05-23] MEDS: LACTATED RINGERS 1,000 ML 100 ML IV (23:00)
[2019-05-23] MEDS: FENT 2MCG/ML BUPIV 0.125% EPI 200 MCG/100 ML PLAST..BAG 10 MCG EPIDURAL (23:35)
[2019-05-24] MEDS: LACTATED RINGERS 1,000 ML 100 ML IV (02:53)
--- NOTE | 2019-05-24 06:27 | P.HPOB_ITS ---
OB HPI Date/Time Date of admission: 05/23/19 Date Patient Seen: 05/24/19 Time Patient Seen: 06:15 History of Present Condition Chief complaint: EVAL OF LABOR : 1 Para: 0 Estimated Date of Delivery: 05/22/19 Estimated Gestational Age (weeks): 40w2d Narrative: Melba Albright is a 28 year old at 40 weeks and 2 days gestation. Contractions began on 05/22/19 at 9:00 p.m.. Yesterday she contracted throughout the day and SROM occurred at 7:15 p.m. with clear fluid. Reports good movement and denies significant bleeding. has been uncomplicated with normal labs and ultrasounds as below. History of Present care: good care, initiated at week # (8), number of visits (14) and pounds weight gain (37) Dating criteria: LMP confirmed by 1st trimester US Ultrasounds: normal 1st trimester US and normal mid trimester US Obstetrical complications: none Medical complications: none Preadmission Labs Blood type: A (+) positive -: Antibody screen: negative, GBS status: negative, HBsAG: negative, HIV: negative and RPR/VDLR: negative -: Rubella: immune and Varicella: immune HCT: 36.2 HCAB: negative PAP: Normal Sequential screen: Normal Quad screen: Normal 1 hr GTT: 133 Evaluation Evaluation Baseline heart rate: 140 Variability: Moderate (11-25) monitor accelerations: Present monitor decelerations: Variable (intermittent) Contraction Frequency (minutes): 3 Category of Tracing: II Cervical dilation (cm): 10 Cervical effacement (%): 100 station: +2 Laboratory results: Laboratory Tests 05/23/19 05/23/19 21:25 21:25 WBC 11.3 H RBC 4.12 Hgb 11.8 L Hct 36.0 MCV 87.3 MCH 28.7 MCHC 32.8 RDW 14.3 Plt Count 186 Neut % (Auto) 75.9 H Lymph % (Auto) 17.1 L [place] % (Auto) 6.1 Eos % (Auto) 0.5 L Baso % (Auto) 0.4 Neut # (Auto) 8600 H Lymph # (Auto) 1900 [place] # (Auto) 700 Eos # (Auto) 100 Baso # (Auto) 0 Blood Type A Positive Antibody Screen Negative PFSH Family History Father Age: 58 Hypertension High cholesterol Grandfather Diabetes mellitus Heart disease Grandmother Age: 94 Hypertension High cholesterol Grandfather Stroke Grandmother Heart disease Social History marital status: number of children: 0 household members: spouse lives independently: Yes education level: college occupational status: employed Smoking Status: Never smoker alcohol intake: current (social) substance use type: does not use Meds Home Medications and Allergies Home Medications Medication Instructions Recorded Confirmed Type prenat.vits,josesito,nxu-cqzb-rdnru 1 tab PO DAILY 10/11/18 05/23/19 History Double Electric Breast Pump and #1 each 03/19/19 05/23/19 Rx supplies Allergies Allergy/AdvReac Type Severity Reaction Status Date / Time No Known Drug Allergies Allergy Verified 05/23/19 20:47 Review of Systems Review of Systems ROS: Yes All systems reviewed with the patient and are negative except as otherwise documented Exam Vital Signs (past 8 hours): T 37.0 BP 123/62 HR 88 Const General: healthy appearing and comfortable HENMT Head: normal to inspection Ears: hearing grossly normal bilaterally Nose: external nose normal Face and sinus: normal facial exam Mouth: oral mucosae normal Eyes General: appearance normal, both eyes and all related structures Neck Neck: normal visual inspection Resp Effort & Inspection: normal respiratory effort Cardio Rate: regular rate Rhythm: regular rhythm GI Other: Gravid External Female Exam: external appearance normal Manual OB Exam: dilated 10, effaced fully and station '+2 Presentation: vertex Estimated Weight (lbs): 7 Amniotic Fluid: clear Back/Spine/Pelvis Back: normal to inspection Skin General: no rashes or lesions noted Extrem General: normal to inspection and no pedal edema Objective Labs Result Diagrams: 05/23/19 21:25 Labs: Laboratory Results - last 24 hr 05/23/19 05/23/19 21:25 21:25 WBC 11.3 H RBC 4.12 Hgb 11.8 L Hct 36.0 MCV 87.3 MCH 28.7 MCHC 32.8 RDW 14.3 Plt Count 186 Neut % (Auto) 75.9 H Lymph % (Auto) 17.1 L [place] % (Auto) 6.1 Eos % (Auto) 0.5 L Baso % (Auto) 0.4 Neut # (Auto) 8600 H Lymph # (Auto) 1900 [place] # (Auto) 700 Eos # (Auto) 100 Baso # (Auto) 0 Blood Type A Positive Antibody Screen Negative Assessment and Plan Assessment and Plan Assessment and Plan narrative: 28 year old at 40 weeks and 2 days gestation with SROM and active labor. GBS negative. Comfortable with epidural. Expectant management, anticipate vaginal delivery.
[2019-05-24] MEDS: OXYTOCIN 10 UNIT/ML VIAL IM (08:07)
--- NOTE | 2019-05-24 08:27 | P.PCNOB_ITS ---
Labor & Delivery Delivery date: 05/24/19 Delivery monitor: external FHT Route of delivery: L&D Laceration Description: Vaginal - 2nd Degree and Labial (Superficial bilateral) Delivery repair: vicryl Estimated blood loss (mL): 400 Anesthesia type: Epidural Narrative: Patient is a 28-year-old at 40 weeks and 2 days who gave on 05/24/19 at 8:01 a.m.. IAN: 05/22/19 Hospital problems: 40 weeks of STAGE I: Labor Labor began at 7:15 p.m. on 05/23/19 with spontaneous rupture of membranes with clear fluid. Patient presented to the hospital with regular contractions. She received an epidural with initially adequate pain control however later inadequate. Second epidural was successful. Patient was complete at 6:01 a.m.. heart tones were category 1 and 2 throughout stage I due to occasional variable decelerations. STAGE II: Delivery Second stage of labor lasted 2 hours. Spontaneous vaginal delivery occurred at 8:01 a.m.. Presentation was vertex and GEN. Infant was immediately placed on mother's abdomen. Cord was clamped and cut after 1 minutes delay. Apgars were 9 and 9 at 1 and 5 minutes respectively. No resuscitation of the required. weight 3469 g. STAGE III: Placenta/Cord Placenta delivered spontaneously at 8:06 a.m. after active management and appeared intact with a three-vessel cord. IM Pitocin given after delivery of placenta. A short second-degree vaginal laceration was repaired in the usual fashion with 3-0 Vicryl. Superficial bilateral labral tears were not repaired. Fundus firm 1 cm below umbilicus after delivery. Hemostasis assured. EBL: 400 mL. Needle and sponge counts were correct. The vagina was inspected and no items were left in situ. Patient was doing well with Eileen, her and at bedside. [place] Baby 1: Infant gender: Female Presentation: vertex Placenta delivery description: Spontaneous cord vessel description: 3 Vessels score (1 min): 9 score (5 min): 9
[2019-05-24] MEDS: DERMOPLAST SPRAY 20% 60 ML 1 SPRAY TOP (11:30)
[2019-05-24] MEDS: IBUPROFEN 600 MG TABLET PO ×2 (11:35→18:48)
[2019-05-25] MEDS: IBUPROFEN 600 MG TABLET PO ×2 (03:32→09:27)
[2019-05-25 07:00] LABS: Hematocrit 32.7 % (36-46); Hemoglobin 10.6 g/dL (12.0-16.0)
--- NOTE | 2019-05-25 08:45 | P.DS_ITS ---
Discharge Providers Provider Date of admission: 05/23/19 19:22 Discharge Date: 05/25/19 Primary care physician: Phylicia Garcia DO Consults: 05/23/19 20:32 Consult to Anesthesiology Urgent Comment: Consulting Provider: Niyha Mccray Reason for consultation: Labor management pain 05/25/19 08:26 Consult to Head Stock Transfer Clerk Routine Comment: Discharge provider: Phylicia Garcia DO Summary Hospital Course Date Patient Seen: 05/25/19 Time Patient Seen: 08:00 Procedures: Spontaneous vaginal delivery Epidural analgesia Hospital Course: Patient is a 28 year old after uncomplicated on 05/24/19 at 40 weeks and 2 days gestation. Patient presented with SROM and active labor. She received an epidural x2 with adequate pain control after the second. A second degree vaginal laceration was repaired. There were no complications . Patient was eating, ambulating, voiding and passing flatus. Bleeding was moderate, pain well-controlled. Breast feeding well without issues in the . Patient was advised to call for fevers, severe pain or bleeding through more than a pad an hour. Follow up for six week visit. Peripartum Data Delivery Method: Natural Vaginal Laceration description: Vaginal - 2nd Degree complications: none [place] 1: Gender: Female Disposition of : home Discharge Diagnosis (1) 40 weeks gestation of : Status: Acute (2) Spontaneous vaginal delivery: Status: Acute Time Spent with Patient Time attestation: Total time spent providing and/or coordinating discharge services: Objective Labs Result Diagrams: 05/25/19 06:42 Labs: Laboratory Results - last 24 hr 05/25/19 06:42 Hgb 10.6 L Hct 32.7 L Exam Vital Signs (past 8 hours): Temperature 98.1? blood pressure 123/65 heart rate 93 respirati ons 17 Narrative Exam Narrative: General: Awake and alert, no acute distress. HEENT: NCAT, EOMI, moist oral mucosa CV: Regular rate and rhythm, no murmurs, rubs or gallops Lungs: CTAB, no wheezes, rales, or rhonchi Abdomen: Soft, nontender; bowel tones active; uterus firm 1 cm below umbilicus Extremities: Warm, no edema, 2+ pedal pulses bilaterally Discharge Plan Discharge Plan Patient Disposition: Home Discharge orders & Medications Prescriptions: New ibuprofen 600 mg Tablet 600 mg PO Q6HR PRN (Reason: Pain, Mild (1-3)) Qty: 30 RF: 0 docusate sodium [DOK] 100 mg Capsule 200 mg PO DAILY Qty: 30 RF: 0 Continued (DME) Double Electric Breast Pump and supplies Qty: 1 RF: 0 prenat.vits,josesito,mbd-lvab-thedn tablet 1 tab PO DAILY RF: 0 Follow up/Referrals: Phylicia Garcia DO [Primary Care Provider] - 6 Weeks Visit Report/Discharge Packet Stand Alone Forms: Discharge: Care Visit Report Forms: Patient Portal/API, Stroke Signs & Symptoms Discharge Data Primary Care Provider: Phylicia Garcia
[2019-05-25] MEDS: DOCUSATE 100 MG CAPSULE 200 MG PO (09:27)
[2019-05-25 10:12] VITALS: BP 112/69; PULSE 66; RESP 18; TEMP 36.6
== END 2019-05-25 13:00 | disposition home or self-care (01) | DRG 807 ==
PROVIDERS: Admitting Provider Family Medicine; PCP Family Medicine; Referring Provider Nurse Practitioner Obstetrics & Gynecology; Visit Provider Family Medicine
DX: O70.1 Second degree perineal laceration during delivery (principal); Z37.0 Single live birth; Z3A.40 40 weeks gestation of pregnancy
CPT/HCPCS: 01967; 36415; 59050; 59400; 84112; 85014; 85018; 85025; 86850; 86900; 86901; G0379; J2590

== ENCOUNTER → 2019-12-13 | Outpatient (CLI) | payer OTHER, SELFPAY | PROVIDERS: PCP Family Medicine; Referring Provider Internal Medicine; Visit Provider Internal Medicine | DX: Z23 Encounter for immunization (principal) | CPT/HCPCS: 90471; 90686 ==

== ENCOUNTER → 2020-08-12 12:53 | Outpatient (CLI) | payer OTHER, SELFPAY ==
[2020-08-12 13:25] LABS: COVID19 -Nasal RAPID Negative (Negative)
== END ==
PROVIDERS: PCP Family Medicine; Visit Provider Physician Assistant
DX: J02.9 Acute pharyngitis, unspecified (principal); R05 Cough; R51.9 Headache, unspecified; Z20.822 Contact with and (suspected) exposure to COVID-19
CPT/HCPCS: 87635

== ENCOUNTER → 2020-08-26 10:40 | Outpatient (CLI) | payer OTHER, SELFPAY ==
[2020-08-26 11:07] LABS: COVID19 -Nasal RAPID Negative (Negative)
[2020-08-26 11:49] LABS: Add Manual Diff / Slide Review NO; Basophils Absolute Auto 0 /uL (0-100); Basophils Percent Auto 0.5 % (0-2); Eosinophils Absolute Auto 100 /uL (0-450); Eosinophils Percent Auto 1.5 % (2-4); Hematocrit 39.2 % (36-46); Hemoglobin 12.7 g/dL (12.0-16.0); Lymphocytes Absolute Auto 2200 /uL (1100-4500); Lymphocytes Percent Auto 28.5 % (25-40); Mean Corpuscular HGB Conc 32.5 % (30-36); Mean Corpuscular Hemoglobin 27.8 PG (26-34); Mean Corpuscular Volume 85.6 fL (80-100); Monocytes Absolute Auto 400 /uL (0-900); Monocytes Percent Auto 5.7 % (3-14); Neutrophils Absolute Auto 4900 /uL (1500-7000); Neutrophils Percent Auto 63.8 % (50-75); Platelet Count 322 X10^3/uL (150-400); Red Blood Cell Count 4.58 X10^6/uL (4.0-5.2); Red Cell Distribution Width 12.9 % (11.6-14.8); White Blood Cell Count 7.7 X10^3/uL (4.5-11.0)
[2020-08-26 12:04] LABS: BUN Creatinine Ratio 22.4 (6-22); Blood Urea Nitrogen 13 mg/dL (7-17); Calcium 9.2 mg/dL (8.4-10.2); Carbon Dioxide 27 mmol/L (22-32); Chloride 103 mmol/L (98-107); Estimated Glomerular Filt Rate > 60.0 mL/min (>60); Glucose 100 mg/dL (70-100); HEMOLYSIS < 15 (0-50); Potassium 4.1 mmol/L (3.4-5.1); Sodium 138 mmol/L (137-145)
== END ==
PROVIDERS: PCP Family Medicine; Referring Provider Physician Assistant; Visit Provider Physician Assistant
DX: Z20.822 Contact with and (suspected) exposure to COVID-19 (principal); R55 Syncope and collapse
CPT/HCPCS: 36415; 80048; 85025; 87635